=== PATIENT | male | born 1940 | race Caucasian/White ===

== ENCOUNTER 2016-10-27 00:31 | Observation (INO) | payer BC ==
[~2016-10-27] VITALS: Ht 175.3 cm; Wt 84.0 kg
[~2016-10-27 00:31] MED LIST: ASPEC81 PO; CLC100 PO; METO50TA16 PO; OXYC1TAB3 PO; PANT40TA PO; SIMV40TA2 PO
[2016-10-27] MEDS ORDERED: ONDANSETRON INJ 2 MG/ML 2 ML VIAL ONE (01:10)
[2016-10-27] MEDS ORDERED: ONDANSETRON INJ 2 MG/ML 2 ML VIAL IV STA (01:10)
[2016-10-27] MEDS ORDERED: COEN30CA8 PO (01:20)
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
[2016-10-27] MEDS ORDERED: SODIUM CHLORIDE 0.9% 1000ML 1,000 ML IV STA (01:32)
[2016-10-27 01:45] LABS: BASO % 0.2 %; BASO ABS # 0.02 K/uL (0-0.2); COMPLETE YES; EOS % 2.4 %; HEMATOCRIT 47.2 % (42-52); IG% 0.7 %; LYMPH % 23.2 %; LYMPH ABS # 2.65 K/uL (1.2-3.4); MEAN CELL VOLUME 93.1 fL (80-100); MEAN CORPUSCULAR HEMOGLOBIN 32.9 pg (25-34); MEAN CORPUSCULAR HGB CONC 35.4 g/dl (32-36); MEAN PLATELET VOLUME 9.5 fL (7.4-10.4); MONO % 3.1 %; NEUT % 70.4 %; PLATELET COUNT 273 K/uL (130-400); RED BLOOD COUNT 5.07 M/uL (4.7-6.1); WHITE BLOOD COUNT 11.44 K/uL (4.8-10.8)
[2016-10-27] MEDS ORDERED: LEVAQUIN 750MG / 150ML D5W IV STA (01:53)
[2016-10-27 01:57] LABS: PROTHROMBIN TIME (PATIENT) 11.1 SECONDS (9.0-12.0)
[2016-10-27 02:05] LABS: ALT/SGPT 22 U/L (12-78); AST/SGOT 11 U/L (15-37); BLOOD UREA NITROGEN 17 mg/dl (7-18); BUN/CREATININE RATIO 15.4 (10-20); CALCIUM 8.9 mg/dl (8.5-10.1); CARBON DIOXIDE 23 mmol/L (21-32); CHLORIDE 104 mmol/L (98-107); GLUCOSE 141 mg/dl (70-99); MAGNESIUM 1.9 mg/dl (1.8-2.4); POTASSIUM 3.8 mmol/L (3.5-5.1); SODIUM 138 mmol/L (136-145)
[2016-10-27 02:10] LABS: ALKALINE PHOSPHATASE 81 U/L (45-117); CKMB/CK RATIO 2.7 (0-3.0)
[2016-10-27] MEDS ORDERED: ZOLPIDEM TARTRATE 5 MG TAB PO PRN (03:00)
[2016-10-27] MEDS ORDERED: ACETAMINOPHEN 325 MG TAB PO PRN (03:00)
[2016-10-27 03:53] VITALS: BP 111/76; PULSE 77; TEMP 36.4; O2SAT 97; Ht 175.3 cm; Wt 84.0 kg
[2016-10-27] MEDS ORDERED: NSS + 20MEQ KCL 1000ML 1,000 ML IV SCH (04:00)
[2016-10-27] MEDS ORDERED: IV FLUIDS COMPLETED PRN (04:00)
--- NOTE | 2016-10-27 05:04 | History and Physical ---
History & Physical Date & Time of Service: Oct 27, 2016 at 04:52 Chief Complaint: Dehydration, Unresponsive Episode Primary Care Physician: Dilip Kramer M.D. History of Present Illness Source: patient, spouse The patient is a 75-year-old male who is brought to the emergency department via EMS along with his , with complaint of a resolved unresponsive episode approximately 5 minutes duration that occurred earlier in the day prior to arrival. The reports that his eyes were open, and she was waving at him and yelling at him and was not able to get him to respond, at which time she called for emergency services. The patient has had a cough with nausea, vomiting and diarrhea over the past few weeks, which is worsened in particular over the past few days. The unresponsive episode noted above, occurred after he returned from a vomiting episode while in the bathroom. reports that his speech was normal, but that his lower lip was flipped outward, and he did have loss of urine control and wetted himself during the incident. He has never had a previous occurrence of this type of activity. Past Medical/Surgical History Medical Problems: (1) Bronchitis Status: Resolved (2) Heart disease Status: Chronic (3) Ulcer Status: Resolved Surgical Problems: (1) Hx of cardiac catheterization Status: Resolved Family History Diabetes mellitus Social History Smoking Status: Current Some Day Smoker Smokeless Tobacco Use: No Alcohol Use: none Drug Use: none Marital Status: Housing status: lives with family Occupational Status: employed Immunizations History of Influenza Vaccine: Yes Influenza Vaccine Date: Jul 18, 2011 History of Tetanus Vaccine?: Yes Tetanus Immunization Date: Feb 03, 2011 History of Pneumococcal: Yes Pneumococcal Date: Aug 18, 2010 History of Hepatitis B Vaccine: No Multi-Drug Resistant Organisms History of MDRO: No Allergies Coded Allergies: No Known Allergies (Verified , 10/27/16) Home Medications Scheduled Aspirin Enteric Coated (Ecotrin Or Generic *), 81 MG PO DAILY Coenzyme Q10 (Ubidecarenone) (Coq-10), 1 CAP PO DAILY Metoprolol Tartrate (Lopressor) (Lopressor), 50 MG PO BID Pantoprazole (Protonix), 40 MG PO DAILY Simvastatin (Zocor), 40 MG PO QPM Review of Systems The patient denies chest pain, palpitations, shortness of breath, cough, lower extremity swelling, vision change, hearing change, sore throat, fevers, chills, sweats, blood in urine or stool, dysuria, urinary frequency or urgency, rash, abnormal bruising or bleeding, imbalance, focal weakness, numbness or tingling in arms or legs, arthralgias or myalgias, back or neck pain, night sweats. The review of systems is otherwise negative other than for that already noted above, and at least 10 systems have been reviewed. Physical Exam Vital Signs Date Time Temp Pulse Resp B/P Pulse Ox O2 Delivery O2 Flow Rate FiO2 10/27/16 03:53 36.4 77 18 111/76 97 Nasal Cannula 3.0 10/27/16 03:21 77 20 113/71 96 10/27/16 01:53 81 18 117/74 93 Nasal Cannula 3.0 10/27/16 01:21 75 10/27/16 01:00 92 Nasal Cannula 2.0 10/27/16 00:42 99 Nasal Cannula 2.0 10/27/16 00:41 77 10/27/16 00:39 36.4 74 22 109/64 91 Room Air The patient is awake, well-developed and adequately nourished, alert and oriented 3, face appears flushed and he looks dehydrated, lying in bed and in no acute distress. HEENT--PERRL, EOMI, mucous membranes and oropharynx dry. Neck--supple, no JVD or bruits, thyroid normal, trachea midline, no adenopathy. Heart--normal S1 and S2, no extra beats, no murmurs, rubs or gallops. Lungs--clear bilaterally with good air movement, no respiratory distress, no accessory muscle use. Abdomen--normal bowel sounds and soft, nontender and nondistended, no hernias or masses, no organomegaly. Extremities--no cyanosis, clubbing or edema. There are good distal pulses b/l. Dermatologic--normal skin turgor, normal color, warm and dry, no abnormal lymph nodes, no rash. Neurologic--cranial nerves II through XII grossly intact, motor and sensory examination normal. Rheumatologic--normal range of motion, nontender, muscles and joints. Psychiatric--normal affect. Diagnostics Laboratory Results Results Past 24 Hours Test 10/27/16 01:00 10/27/16 01:27 10/27/16 01:29 10/27/16 04:44 Range/Units Influenza Type A Antigen Neg for Influ A NEG Influenza Type B Antigen Neg for Influ B NEG Bedside Lactic Acid Venous 2.06 0.90-1.70 mmol/L White Blood Count 11.44 4.8-10.8 K/uL Red Blood Count 5.07 4.7-6.1 M/uL Hemoglobin 16.7 14.0-18.0 g/dL Hematocrit 47.2 42-52 % Mean Corpuscular Volume 93.1 80-100 fL Mean Corpuscular Hemoglobin 32.9 25-34 pg Mean Corpuscular Hemoglobin Concent 35.4 32-36 g/dl Platelet Count 273 130-400 K/uL Mean Platelet Volume 9.5 7.4-10.4 fL Neutrophils (%) (Auto) 70.4 % Lymphocytes (%) (Auto) 23.2 % Monocytes (%) (Auto) 3.1 % Eosinophils (%) (Auto) 2.4 % Basophils (%) (Auto) 0.2 % Neutrophils # (Auto) 8.06 1.4-6.5 K/uL Lymphocytes # (Auto) 2.65 1.2-3.4 K/uL Monocytes # (Auto) 0.36 0.11-0.59 K/uL Eosinophils # (Auto) 0.27 0-0.5 K/uL Basophils # (Auto) 0.02 0-0.2 K/uL RDW Standard Deviation 45.5 36.4-46.3 fL RDW Coefficient of Variation 13.4 11.5-14.5 % Immature Granulocyte % (Auto) 0.7 % Immature Granulocyte # (Auto) 0.08 0.00-0.02 K/uL Prothrombin Time 11.1 9.0-12.0 SECONDS Prothromb Time International Ratio 1.0 0.9-1.1 Sodium Level 138 136-145 mmol/L Potassium Level 3.8 3.5-5.1 mmol/L Chloride Level 104 98-107 mmol/L Carbon Dioxide Level 23 21-32 mmol/L Anion Gap 11.0 3-11 mmol/L Blood Urea Nitrogen 17 7-18 mg/dl Creatinine 1.10 0.60-1.40 mg/dl Est Creatinine Clear Calc Drug Dose 50.7 ml/min Estimated GFR () 75.2 Estimated GFR (Non- 64.9 BUN/Creatinine Ratio 15.4 10-20 Random Glucose 141 70-99 mg/dl Calcium Level 8.9 8.5-10.1 mg/dl Magnesium Level 1.9 1.8-2.4 mg/dl Total Bilirubin 0.3 0.2-1 mg/dl Direct Bilirubin < 0.1 0-0.2 mg/dl Aspartate Amino Transf (AST/SGOT) 11 15-37 U/L Alanine Aminotransferase (ALT/SGPT) 22 12-78 U/L Alkaline Phosphatase 81 45-117 U/L Total Creatine Kinase 73 39-308 U/L Creatine Kinase MB 2.0 0.5-3.6 ng/ml Creatine Kinase MB Ratio 2.7 0-3.0 Troponin I < 0.015 0-0.045 ng/ml Total Protein 6.9 6.4-8.2 gm/dl Albumin 3.8 3.4-5.0 gm/dl Microbiology Results 10/27/16 Blood Culture, Received Pending 10/27/16 Blood Culture, Received Pending 10/27/16 C.difficile Toxin B Gene (PCR) - Final, Complete No C. difficile toxin B gene detected 10/27/16 Shiga Toxin Test, Received Pending 10/27/16 Stool Culture, Received Pending EKG EKG shows normal sinus rhythm at 73, with T-wave inversions in leads III and aVF. Impression Assessment and Plan Unresponsive episode, with signs and symptoms of dehydration, and T-wave inversions in leads III and aVF on EKG. The patient will be admitted to the telemetry unit, for serial cardiac enzymes, cardiac rhythm monitoring, and a 2- D echocardiogram with Dopplers. We'll also order an EEG, neurovascular checks, and MRI brain combo. He'll be placed on normal saline with 20 mEq of potassium chloride at 100 mils per hour. We'll continue metoprolol tartrate at 50 mg by mouth twice a day, and enteric-coated aspirin 81 mg by mouth daily. GERD--continue pantoprazole 40 mg by mouth daily. Hyperlipidemia--continue simvastatin 40 mg by mouth every afternoon. Level of Care Telemetry Advanced Directives Existing Advance Directive: Yes Existing Living Will: Yes Existing Power of Hairspring Vibrator: Yes Resuscitation Status FULL RESUSCITATION VTE Prophylaxis VTE Risk Assessment Done? Y/N: Yes Risk Level: Moderate Given or contraindicated: SCD's Social Service Consult None Apply
--- NOTE | 2016-10-27 06:38 | DIAGNOSTIC IMAGING REPORT ---
CT HEAD WITHOUT CONTRAST (CT) CLINICAL HISTORY: Syncope. Weakness. COMPARISON STUDY: No previous studies for comparison. TECHNIQUE: Axial CT of the brain is performed from the vertex to the skull base. IV contrast was not administered for this examination. CT DOSE: 537.48 mGy.cm FINDINGS: No intra or extra-axial mass lesions are visualized. There is no CT evidence of acute cortical infarction. There is no evidence of midline shift. There is no acute hemorrhage. No calvarial fractures are visualized. There are patchy white matter hypodensities likely on a small vessel basis. There is no evidence of pathologic ventricular dilatation. There is no evidence of acute sinusitis IMPRESSION: No acute intracranial findings Electronically signed by: Viktor Garcia M.D. 10/27/2016 6:36 AM Dictated Date/Time: 10/27/2016 6:35 AM
[2016-10-27 06:43] LABS: CKMB/CK RATIO 2.6 (0-3.0)
--- NOTE | 2016-10-27 07:15 | DIAGNOSTIC IMAGING REPORT ---
SINGLE VIEW CHEST CLINICAL HISTORY: Fever. FINDINGS: An AP, portable, upright chest radiograph is compared to study dated 08/11/2011. The examination is degraded by portable technique and patient rotation. The patient is status post midline sternotomy. The heart is enlarged and there is atherosclerotic calcification of the thoracic aorta. The pulmonary vasculature is noncongested. Emphysematous change and chronic interstitial thickening is similar to previous. There is elevation of the left hemidiaphragm with left basilar airspace opacities. No pleural effusion or pneumothorax is seen. The skeletal structures are osteopenic. The bony thorax is grossly intact. IMPRESSION: 1. Cardiomegaly and emphysema. There is no radiographic evidence of congestive failure. 2. There are left basilar airspace opacities. This could represent atelectasis, developing pneumonia, and/or aspiration pneumonitis. Clinical correlation will be required. Electronically signed by: Michael Cornell M.D. 10/27/2016 7:13 AM Dictated Date/Time: 10/27/2016 7:11 AM
[2016-10-27 08:00] VITALS: O2SAT 94
[2016-10-27 08:18] VITALS: BP 110/69; PULSE 75; TEMP 36.3; O2SAT 97
[2016-10-27] MEDS ORDERED: METOPROLOL TARTRATE 50 MG TAB PO SCH (09:00)
[2016-10-27] MEDS ORDERED: PANTOprazole SOD 40 MG TAB PO SCH (09:00)
[2016-10-27] MEDS ORDERED: ASPIRIN 81 MG ECTAB PO SCH (09:00)
[2016-10-27] MEDS ORDERED: GADAVIST IV PRN (09:30)
--- NOTE | 2016-10-27 09:31 | EEG Procedure Note ---
EEG Procedure Note Date of Service Oct 27, 2016. Start / End Times Start Time: 5:24 AM End Time: 5:44 AM Referring Physician Santosh Gallardo History This is a 75-year-old male with an unresponsive episode. EEG for further evaluation of possible seizure etiology. Home Medication List Scheduled Aspirin Enteric Coated (Ecotrin Or Generic *), 81 MG PO DAILY Coenzyme Q10 (Ubidecarenone) (Coq-10), 1 CAP PO DAILY Metoprolol Tartrate (Lopressor) (Lopressor), 50 MG PO BID Pantoprazole (Protonix), 40 MG PO DAILY Simvastatin (Zocor), 40 MG PO QPM Inpatient Medication List Current Inpatient Medications Medications (Trade) Dose Ordered Sig/Nayan Route Start Time Stop Time Status Last Admin Dose Admin Potassium Chloride/Sodium Chloride (Nss + 20meq KCl 1000ml) 1,000 ml @ 125 mls/hr Q8H IV 10/27/16 04:00 11/26/16 03:59 10/27/16 04:19 125 MLS/HR Acetaminophen (Tylenol Tab) 650 mg Q4H PRN PO 10/27/16 03:00 11/26/16 02:59 Zolpidem Tartrate (Ambien Tab) 5 mg HSZ PRN PO 10/27/16 03:00 11/26/16 02:59 Aspirin (Ecotrin Tab) 81 mg DAILY PO 10/27/16 09:00 11/26/16 08:59 Metoprolol Tartrate (Lopressor Tab) 50 mg BID PO 10/27/16 09:00 11/26/16 08:59 Pantoprazole Sodium (Protonix Tab) 40 mg DAILY PO 10/27/16 09:00 11/26/16 08:59 Simvastatin (Zocor Tab) 40 mg QPM PO 10/27/16 21:00 11/26/16 20:59 Miscellaneous (Iv Fluids Completed) 1 ea PRN PRN N/A 10/27/16 04:00 10/27/17 03:59 Gadobutrol (Gadavist) 8 mmol UD PRN IV 10/27/16 09:30 10/31/16 09:29 UNV Description This is a 21 electrode EEG with a single channel dedicated to limited EKG. The electrodes were placed in accordance with the International 10-20 system. At the start of the recording the patient was in an awake state. Background was well organized and composed of symmetric mixed alpha and beta frequencies. There was a symmetric well-formed moderate amplitude 8-9 Hz posterior dominant rhythm that was reactive to eye opening and closure. Hyperventilation was not done. Intermittent photic stimulation at various frequencies produced no abnormalities. There was no state changes or sleep transients. Interpretation This is a normal awake only routine EEG. There was no electrographic seizures or epileptiform discharges. Clinical Correlation A normal EEG does not rule out epilepsy if there is a strong clinical suspicion.
--- NOTE | 2016-10-27 09:35 | DIAGNOSTIC IMAGING REPORT ---
MRI OF THE BRAIN WITHOUT AND WITH IV CONTRAST SEIZURE PROTOCOL CLINICAL HISTORY: Unresponsive episode. COMPARISON STUDY: Head CT October 27, 2016. TECHNIQUE: Utilizing a 1.5 Nayely magnet and dedicated coil, multiplanar, multiecho imaging of the brain was performed pre and postcontrast administration. IV administration of 8 mL of Gadavist contrast was uneventful. Thin cut coronal T2 imaging was performed according to seizure protocol. FINDINGS: This exam is mildly compromised by artifact although is diagnostic. There are no areas of restricted diffusion. No acute intracranial hemorrhage, midline shift or mass effect is present. Moderate atrophy is noted. Extensive white matter T2 hyperintense foci suggest small vessel disease. No intracranial mass or pathologic enhancement is present. Flow-voids for the major intracranial vessels are present. The orbits and sinuses are unremarkable with exception of minimal polypoid mucosal thickening of the sinuses. There is no fluid within the mastoid air cells. IMPRESSION: 1. No acute intracranial findings. 2. No intracranial masses or pathologic enhancement. 3. Moderate atrophy and small vessel disease. Electronically signed by: Peter De La Rosa M.D. 10/27/2016 9:33 AM Dictated Date/Time: 10/27/2016 9:27 AM
[2016-10-27] MEDS ORDERED: SODIUM CHLORIDE 0.65% NA SOLN 45 ML (OCEAN) PRN (09:45)
[2016-10-27 12:00] VITALS: O2SAT 94
[2016-10-27 12:01] VITALS: BP 104/67; PULSE 64; TEMP 36.6; O2SAT 95
[2016-10-27 13:05] LABS: CKMB/CK RATIO 2.9 (0-3.0)
--- NOTE | 2016-10-27 14:25 | Discharge Instructions ---
Discharge Instructions Admission Reason for Admission: Dehydration, Unresponsive Episode Discharge Discharge Diagnosis / Problem: dehydration Discharge Goals Goal(s): Diagnostic testing, Therapeutic intervention Activity Recommendations Activity Limitations: resume your previous activity . Instructions / Follow-Up Instructions / Follow-Up please discontinue the antibiotic that was given to you by Dr Millard office Current Hospital Diet Patient's current hospital diet: AHA Diet (Heart Healthy) Discharge Diet Recommended Diet: Regular Diet Pending Studies Studies pending at discharge: yes List of pending studies: final culture results are pending Medical Emergencies . Who to Call and When: Medical Emergencies: If at any time you feel your situation is an emergency, please call 911 immediately. . Non-Emergent Contact Non-Emergency issues call your: Primary Care Provider . . "Provider Documentation" section prepared by Vinod Chen. VTE Core Measure Inpt VTE Proph given/why not?: SCD's
[2016-10-27 14:35] VITALS: BP 104/67; PULSE 64; TEMP 36.6; O2SAT 95
--- NOTE | 2016-10-27 15:53 | Discharge Summary ---
Discharge Summary Admission Date: Oct 27, 2016 at 02:58 Discharge Date: Oct 27, 2016 Discharge Disposition: Home Principal Diagnosis: syncope, dehydration resolved Immunizations: Have You Had Influenza Vaccine: Yes Influenza Vaccine Date: Jul 18, 2011 History of Tetanus Vaccine?: Yes Tetanus Immunization Date: Feb 03, 2011 History of Pneumococcal: Yes Pneumococcal Date: Aug 18, 2010 History of Hepatitis B Vaccine: No Procedures: CT head, MRI brain, EEG, ECG, monitoring and Cardiac enzymes no acute abnormalities Medication Reconciliation Continued Medications: Aspirin Enteric Coated (Ecotrin Or Generic *) 81 Mg Ectab 81 MG PO DAILY, 0 Refills Coenzyme Q10 (Ubidecarenone) (Coq-10) 30 Mg Cap 1 CAP PO DAILY Metoprolol Tartrate (Lopressor) (Lopressor) 50 Mg Tab 50 MG PO BID, 0 Refills Pantoprazole (Protonix) 40 Mg Tab 40 MG PO DAILY, 0 Refills Simvastatin (Zocor) 40 Mg Tab 40 MG PO QPM, 0 Refills Discharge Exam Review of Systems: Constitutional: No chills, No fever Respiratory: No cough, No sputum Cardiovascular: No chest pain, No orthopnea Abdomen: No nausea, No pain, No vomiting Genitourinary - Male: No dysuria, No hematuria Physical Exam: General Appearance: WD/WN, no apparent distress Eyes: PERRL, EOMI Neck: supple, no JVD Respiratory/Chest: chest non-tender, lungs clear, normal breath sounds Cardiovascular: regular rate, rhythm, no murmur Neurologic/Psychiatric: alert, oriented x 3 Hospital Course 75 M with an unresponsive episode, after vomiting at home with clinical signs and symptoms of dehydration per the admitting physician. Has had no further vomiting, has had no arrythmia, did have imaging and EEG with no changes, ate lunch and ambulated in unit, brennon secondary to vasovagal syncope augmenting dehydration and orthostatic hypotension while on metoprolol not allowing tachycardic response. since resolution of symptoms, able to eat and walk without issue, will have home on same meds with close outpt follow up, will stop outpt augmentin as maybe implicated in diarrhea leading to dehydration. negative C diff here, enteric testing pending at time of discharge GERD--continue pantoprazole 40 mg by mouth daily. Hyperlipidemia--continue simvastatin 40 mg by mouth every afternoon. Total Time Spent: Greater than 30 minutes This includes examination of the patient, discharge planning, medication reconciliation, and communication with other providers. Discharge Instructions Please refer to the electronic Patient Visit Report (Discharge Instructions) for additional information.
--- NOTE | 2016-10-27 17:16 | ECHOCARDIOGRAM REPORT ---
*NOTICE TO RECEIVING [employer] This information is strictly Confidential and protected under [place] law. [place] law prohibits you from making any further disclosure of this information unless further disclosure is expressly permitted by the written consent of the person to whom it pertains or is authorized by law. A general authorization for the release of medical or other information is not sufficient for this purpose. Hospital accepts no responsibility if the information is made available to any other person, INCLUDING THE PATIENT. Interpretation Summary * Name: OSCAR KINNEY Study Date: 10/27/2016 07:47 AM BP: 110/69 mmHg * Patient Location: .2T\S\E215\S\1 HR: 72 * : 1940 (M/d/yyy) Gender: Male Height: 69 in * Age: 75 yrs Ethnicity: CA Weight: 138 lb * Ordering Physician: Santosh Gallardo * Referring Physician: Self, Referred * Performed By: Celestina Perez RCS * * Reason For Study: ALT OF CONSCIOUSNESS / UNRESPONSIVE / DEHYDRATED * BSA: 1.8 m2 * -- Conclusions -- * Left ventricular systolic function is normal. * No regional wall motion abnormalities noted. * Ejection Fraction = 55-60%. * There is mild concentric left ventricular hypertrophy. * Grade I diastolic dysfunction, (abnormal relaxation pattern). * Aortic valve sclerosis mild, without significant aortic valvular stenosis. * There is mild mitral regurgitation. * There is mild tricuspid regurgitation. Procedure Details * A complete two-dimensional transthoracic echocardiogram was performed (2D, M-mode, Doppler and color flow Doppler). Left Ventricle * The left ventricle is normal in size. * There is mild concentric left ventricular hypertrophy. * Left ventricular systolic function is normal. * Ejection Fraction = 55-60%. * No regional wall motion abnormalities noted. Right Ventricle * The right ventricle is normal size. * The right ventricular systolic function is normal as assessed by tricuspid annular plane systolic excursion (TAPSE) (normal >1.5 cm). Atria * The left atrium is mildly dilated. * The right atrium is borderline dilated. * There is no evidence of atrial septal defect, but resolution does not allow assessment for a patent foramen ovale. * Lipomatous hypertrophy of the interatrial septum is noted. Mitral Valve * The mitral valve is normal in structure and function. * There is no mitral valve stenosis. * There is mild mitral regurgitation. Tricuspid Valve * The tricuspid valve is normal in structure and function. * There is mild tricuspid regurgitation. Aortic Valve * The aortic valve is trileaflet. * The aortic valve opens well. * Aortic valve sclerosis mild, without significant aortic valvular stenosis. * There is no significant aortic regurgitation. Pulmonic Valve * The pulmonic valve is not well visualized. * Trace pulmonic valvular regurgitation. Left Ventricular Diastolic Function * Grade I diastolic dysfunction, (abnormal relaxation pattern). MMode 2D Measurements and Calculations IVSd 1.5 cm IVSs 2.1 cm LVIDd 5.2 cm LVIDs 3.9 cm LVPWd 1.0 cm LVPWs 1.1 cm IVS/LVPW 1.4 FS 24.5 % EDV(Teich) 130.1 ml ESV(Teich) 67.3 ml EF(Teich) 48.2 % EDV(cubed) 141.4 ml ESV(cubed) 60.9 ml EF(cubed) 56.9 % % IVS thick 40.3 % % LVPW thick 9.8 % LV mass(C)d 265.9 grams LV mass(C)dI 150.7 grams/m\S\2 LV mass(C)s 252.8 grams LV mass(C)sI 143.3 grams/m\S\2 SV(Teich) 62.7 ml SI(Teich) 35.6 ml/m\S\2 SV(cubed) 80.4 ml SI(cubed) 45.6 ml/m\S\2 Ao root diam 4.3 cm Ao root area 14.8 cm\S\2 ACS 2.4 cm LA dimension 4.6 cm LA/Ao 1.1 LVOT diam 2.0 cm LVOT area 3.1 cm\S\2 LVAd ap4 37.1 cm\S\2 LVLd ap4 9.1 cm EDV(MOD-sp4) 124.2 ml EDV(sp4-el) 128.7 ml LVAs ap4 25.2 cm\S\2 LVLs ap4 7.6 cm ESV(MOD-sp4) 69.4 ml ESV(sp4-el) 71.3 ml EF(MOD-sp4) 44.1 % EF(sp4-el) 44.6 % LVAd ap2 34.7 cm\S\2 LVLd ap2 8.5 cm EDV(MOD-sp2) 112.1 ml EDV(sp2-el) 120.6 ml LVAs ap2 24.5 cm\S\2 LVLs ap2 7.4 cm ESV(MOD-sp2) 65.2 ml ESV(sp2-el) 69.1 ml EF(MOD-sp2) 41.8 % EF(sp2-el) 42.7 % LVLd %diff -6.69 % EDV(MOD-bp) 118.9 ml LVLs %diff -2.13 % ESV(MOD-bp) 67.3 ml EF(MOD-bp) 43.4 % SV(MOD-sp4) 54.8 ml SI(MOD-sp4) 31.0 ml/m\S\2 SV(MOD-sp2) 46.9 ml SI(MOD-sp2) 26.6 ml/m\S\2 SV(MOD-bp) 51.6 ml SI(MOD-bp) 29.2 ml/m\S\2 SV(sp4-el) 57.5 ml SI(sp4-el) 32.6 ml/m\S\2 SV(sp2-el) 51.5 ml SI(sp2-el) 29.2 ml/m\S\2 Doppler Measurements and Calculations MV E max carrillo 55.5 cm/sec MV A max carrillo 69.0 cm/sec MV E/A 0.80 MV P1/2t max carrillo 67.3 cm/sec MV P1/2t 110.0 msec MVA(P1/2t) 2.0 cm\S\2 MV dec slope 179.2 cm/sec\S\2 MV dec time 0.34 sec Ao V2 max 117.3 cm/sec Ao max PG 5.5 mmHg Ao max PG (full) 0.60 mmHg JAMES(V,A) 3.0 cm\S\2 JAMES(V,D) 3.0 cm\S\2 LV V1 max PG 4.9 mmHg LV V1 max 110.7 cm/sec PA V2 max 83.6 cm/sec PA max PG 2.8 mmHg PI max carrillo 190.7 cm/sec PI max PG 14.5 mmHg PI dec slope 210.5 cm/sec\S\2 PI P1/2t 265.3 msec TR max carrillo 221.3 cm/sec
[2016-10-27] MEDS ORDERED: SIMVASTATIN 40 MG TAB PO SCH (21:00)
== END 2016-10-27 15:27 | disposition home or self-care (01) ==
LOC: ENRESERVDT → ENRESERVTM → EDBD 00:31 → C.EDB 00:33 → C.2T 02:58
PROVIDERS: ADMIT Hospitalist; ATTEND Internal Medicine
DX: R55 Syncope and collapse (principal); E86.0 Dehydration; R19.7 Diarrhea, unspecified; K21.9 Gastro-esophageal reflux disease without esophagitis; E78.5 Hyperlipidemia, unspecified; F17.200 Nicotine dependence, unspecified, uncomplicated; Z79.899 Other long term (current) drug therapy; Z79.82 Long term (current) use of aspirin

== ENCOUNTER → 2016-11-22 | Outpatient (CLI) | payer BC ==
[~2016-11-22] MED LIST changes: -CLC100 PO; +COEN30CA8 PO; -OXYC1TAB3 PO
[2016-11-22 12:54] LABS: ALB/GLOB RATIO 1.1 (0.9-2); ALKALINE PHOSPHATASE 83 U/L (45-117); ALT/SGPT 24 U/L (12-78); AST/SGOT 14 U/L (15-37); BLOOD UREA NITROGEN 10 mg/dl (7-18); BUN/CREATININE RATIO 11.3 (10-20); CALCIUM 9.4 mg/dl (8.5-10.1); CARBON DIOXIDE 25 mmol/L (21-32); CHLORIDE 103 mmol/L (98-107); CHOLESTEROL 257 mg/dl (0-200); CHOLESTEROL/HDL RATIO 3.3; CREATININE 0.88 mg/dl (0.60-1.40); GLUCOSE 97 mg/dl (70-99); HDL CHOLESTEROL 77 mg/dl; LDL CHOLESTEROL CALCULATED 133 mg/dl; POTASSIUM 3.8 mmol/L (3.5-5.1); SODIUM 139 mmol/L (136-145); TRIGLYCERIDES 233 mg/dl (0-150); VERY LOW DENSITY LIPOPROT CALC 47 mg/dl
== END | disposition home or self-care (01) ==
LOC: C.LABBFT 08:12
PROVIDERS: ATTEND Internal Medicine
DX: E78.5 Hyperlipidemia, unspecified (principal)

== ENCOUNTER → 2017-04-08 | Outpatient (CLI) | payer BC ==
[~2017-04-08] MED LIST changes: +ASPI81TA28 PO; +ATOR-22 PO
[2017-04-08 13:37] LABS: ALT/SGPT 29 U/L (12-78); AST/SGOT 13 U/L (15-37); BLOOD UREA NITROGEN 13 mg/dl (7-18); CALCIUM 9.3 mg/dl (8.5-10.1); CARBON DIOXIDE 23 mmol/L (21-32); CHLORIDE 104 mmol/L (98-107); CHOLESTEROL 226 mg/dl (0-200); CREATININE 0.84 mg/dl (0.60-1.40); GLUCOSE 90 mg/dl (70-99); POTASSIUM 4.4 mmol/L (3.5-5.1); SODIUM 136 mmol/L (136-145)
[2017-04-08 13:40] LABS: ALB/GLOB RATIO 1.2 (0.9-2); ALKALINE PHOSPHATASE 83 U/L (45-117); CHOLESTEROL/HDL RATIO 3.5; HDL CHOLESTEROL 65 mg/dl; LDL CHOLESTEROL CALCULATED 143 mg/dl; TRIGLYCERIDES 92 mg/dl (0-150); VERY LOW DENSITY LIPOPROT CALC 18 mg/dl
== END | disposition home or self-care (01) ==
LOC: C.LABBFT 08:08
PROVIDERS: ATTEND Internal Medicine
DX: E78.5 Hyperlipidemia, unspecified (principal); R73.01 Impaired fasting glucose

== ENCOUNTER → 2017-04-22 | Outpatient (CLI) | payer BC ==
[~2017-04-22] MED LIST changes: -ASPI81TA28 PO; -ATOR-22 PO
--- NOTE | 2017-04-22 11:36 | DIAGNOSTIC IMAGING REPORT ---
ADDENDUM ADDITIONAL TECHNIQUE: Additionally, ankle brachial indices were calculated. ADDITIONAL FINDINGS: Right brachial pressure: 128 mmHg Right posterior tibial artery: 153 mmHg for an ankle-brachial index of 1.18 Right dorsalis pedis: 129 mmHg for an ankle-brachial index of 0.99 Left brachial pressure: 130 mmHg Left posterior tibial artery: 153 mmHg for an ankle-brachial index of 1.18 Left dorsalis pedis: 120 mmHg for an ankle-brachial index of 0.92 IMPRESSION: Essentially normal bilateral ankle-brachial brachial indices. Electronically signed by: Damian Segovia 04/22/2017 3:11 PM Dictated Date/Time: 04/22/2017 3:07 PM ORIGINAL REPORT ART DOP LOWER EXT BILAT CLINICAL HISTORY: 76 years-old Male presenting with Decreased dorsalis pedis pulse. TECHNIQUE: Real-time grayscale and color and spectral Doppler ultrasound imaging of the bilateral lower extremity arteries was performed. Measurements calculated based on NASCET criteria. COMPARISON: None. FINDINGS: Right: Common femoral artery: Atherosclerotic plaque. Mild spectral broadening of triphasic arterial waveform. Peak systolic velocity 80 cm/s. Profunda femoris: Atherosclerotic plaque. Mild spectral broadening of the triphasic arterial waveform. Peak systolic velocity 56 cm/s. Superficial femoral artery: Minimal atherosclerosis. Normal triphasic waveforms in the proximal, mid, and distal portions with peak systolic velocities ranging from 70 to 79 cm/s. Popliteal artery: Patent. Normal triphasic waveform. Peak systolic velocity 47 cm/s. Posterior tibial artery: Patent. Normal triphasic waveform. Peak systolic velocity 74 cm/s. Peroneal artery: Patent. Normal triphasic waveform. Peak systolic velocity 49 cm/s. Anterior tibial artery: Patent. Normal triphasic waveforms. Peak systolic velocity 66 cm/s. Dorsalis pedis: Patent. Normal triphasic waveforms. Peak systolic velocity 57-65 cm/s. Left: Common femoral artery: Patent. Normal triphasic waveform. Peak systolic velocity 68 cm/s. Profunda femoris: Patent. Normal triphasic arterial waveform. Peak systolic velocity 46 cm/s. Superficial femoral artery: Patent. Normal triphasic waveforms in the proximal, mid, and distal portions with peak systolic velocities ranging from 60 to 110 cm/s. Popliteal artery: Patent. Normal triphasic waveform. Peak systolic velocity 41-52 cm/s. Posterior tibial artery: Patent. Normal triphasic waveform. Peak systolic velocity 46-59 cm/s. Peroneal artery: Patent. Normal triphasic waveform. Peak systolic velocity 46-48 cm/s. Anterior tibial artery: Patent. Normal triphasic waveforms. Peak systolic velocity 34-69 cm/s. Dorsalis pedis: Patent. Normal triphasic waveforms. Peak systolic velocity 29 cm/s. 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 No significant stenosis. Dorsalis pedis arteries patent bilaterally. Electronically signed by: Damian Segovia 04/22/2017 11:34 AM Dictated Date/Time: 04/22/2017 11:15 AM
== END | disposition home or self-care (01) ==
LOC: C.ULTR 09:43
PROVIDERS: ATTEND Internal Medicine
DX: R09.89 Other specified symptoms and signs involving the circulatory and respiratory systems (principal)

== ENCOUNTER → 2017-09-06 | Outpatient (CLI) | payer BC ==
--- NOTE | 2017-09-06 09:37 | DIAGNOSTIC IMAGING REPORT ---
ABDOMEN 2 VIEWS CLINICAL HISTORY: Lower abdominal pain. FINDINGS: Supine and erect abdominal radiographs are correlated with abdominal CT dated 10/05/2011. There is a nonobstructed abdominal bowel gas pattern. Mild colonic fecal retention is observed. No evidence of intraperitoneal free air is seen. There are no abnormal abdominal calcifications. There is atherosclerotic calcification of the abdominal aorta. Phleboliths are seen in the pelvis. The heart is enlarged and midline sternotomy wires are noted. The partially visualized lower lobe lung parenchyma is grossly clear. The skeletal structures appear osteopenic. Mild lumbosacral spondylosis and scoliosis are identified. IMPRESSION: Nonobstructed abdominal bowel gas pattern. Electronically signed by: Michael Cornell M.D. 09/06/2017 9:36 AM Dictated Date/Time: 09/06/2017 9:34 AM
--- NOTE | 2017-09-06 09:37 | DIAGNOSTIC IMAGING REPORT ---
CHEST 2 VIEWS ROUTINE CLINICAL HISTORY: ABD PAIN, COUGH COMPARISON STUDY: 10/27/2016 FINDINGS: There are postsurgical changes of a midline sternotomy. The heart is the upper limits of normal in size. There is no failure. There is no lobar consolidation. There is stable interstitial thickening. There is suspected underlying emphysema. There is a linear left basilar opacity, consistent with subsegmental atelectasis.[ IMPRESSION: Radiographic evidence of emphysema with chronic interstitial thickening. Mild left basilar atelectasis. No evidence of lobar consolidation. Electronically signed by: Vikotr Garcia M.D. 09/06/2017 9:36 AM Dictated Date/Time: 09/06/2017 9:34 AM
[2017-09-06 09:39] LABS: BASO % 0.3 %; BASO ABS # 0.02 K/uL (0-0.2); COMPLETE YES; EOS % 1.7 %; HEMATOCRIT 49.4 % (42-52); IG% 0.3 %; LYMPH % 20.3 %; LYMPH ABS # 1.57 K/uL (1.2-3.4); MEAN CELL VOLUME 96.5 fL (80-100); MEAN CORPUSCULAR HEMOGLOBIN 34.4 pg (25-34); MEAN CORPUSCULAR HGB CONC 35.6 g/dl (32-36); MEAN PLATELET VOLUME 9.8 fL (7.4-10.4); MONO % 10.2 %; NEUT % 67.2 %; PLATELET COUNT 296 K/uL (130-400); RED BLOOD COUNT 5.12 M/uL (4.7-6.1); WHITE BLOOD COUNT 7.72 K/uL (4.8-10.8)
[2017-09-06 09:55] LABS: ALT/SGPT 20 U/L (12-78); AMYLASE 35 U/L (25-115); BLOOD UREA NITROGEN 9 mg/dl (7-18); CALCIUM 9.7 mg/dl (8.5-10.1); CARBON DIOXIDE 28 mmol/L (21-32); CHLORIDE 100 mmol/L (98-107); CREATININE 1.03 mg/dl (0.60-1.40); GLUCOSE 96 mg/dl (70-99); SODIUM 135 mmol/L (136-145)
[2017-09-06 09:57] LABS: ALB/GLOB RATIO 0.9 (0.9-2); ALKALINE PHOSPHATASE 97 U/L (45-117); AST/SGOT 11 U/L (15-37)
== END | disposition home or self-care (01) ==
LOC: C.RAD 08:19
PROVIDERS: ATTEND Nurse Practitioner
DX: R10.84 Generalized abdominal pain (principal); R05 Cough

== ENCOUNTER → 2017-09-12 | Outpatient (CLI) | payer BC ==
--- NOTE | 2017-09-12 07:54 | DIAGNOSTIC IMAGING REPORT ---
ABDOMEN AND PELVIS CT WITH ORAL CONTRAST CT DOSE: 611.02 mGy.cm HISTORY: Acute right lower quadrant and right groin pain. History of prior appendectomy. TECHNIQUE: Multiaxial CT images of the abdomen and pelvis were performed following the use of oral contrast. A dose lowering technique was utilized adhering to the principles of ALARA. COMPARISON STUDY: CT abdomen and pelvis 10/05/2011, 09/25/2009. FINDINGS: Thin-walled cyst of the right lower lobe abutting the minor fissure measures up to 5.0 cm with adjacent perifissural lymph node which measures 6 mm. Groundglass opacities of the bilateral lung bases are noted. Mild centrilobular emphysematous changes are also noted. Areas of bronchial wall thickening involves the bilateral lung bases suggesting bronchitis. There is a 6 x 6 mm nodule of the left lower lobe seen on image 58 of series 3 demonstrating a central lucency compatible with cavitation. The central lucency is new, however the nodule is unchanged in size dating back to 09/25/2009. 4 mm noncalcified solid nodule of the left lower lobe is seen on image 20 of series 3. 4 mm solid nodule of the left lower lobe also seen on image 35 of series 3. Coronary arterial calcifications are noted. Prior median sternotomy. No pneumoperitoneum or pneumatosis. Evaluation of the solid abdominal organs is limited without use of IV contrast. There are multiple low attenuating lesions scattered throughout the liver, largest of which is within the left hepatic lobe measure 1.8 cm. Again, these suggest hepatic cyst. No intrahepatic biliary ductal dilation. Gallstones are noted layering within the gallbladder. No CT evidence of acute cholecystitis. Spleen and right adrenal gland are unremarkable. There is at least moderate diffuse pancreatic atrophy. 10 x 10 mm low attenuating lesion of the left adrenal gland is compatible with adenoma, unchanged. Mild nonspecific perinephric stranding is seen bilaterally. 11 x 14 mm exophytic lesion of the posterior aspect superior pole right kidney is again noted suggesting renal cyst. No renal calculi or hydronephrosis. Ureters and urinary bladder are unremarkable. Fusiform ectasia of the infrarenal abdominal aorta measures up to 2.4 x 2.2 cm with moderate to severe atherosclerotic plaquing. No bulky adenopathy. There is no bowel obstruction. Moderate stool volume noted within the rectum. Areas of mild to moderate wall thickening are noted within the mid sigmoid colon as seen on image 342 of series 3. No surrounding inflammatory stranding to suggest colitis. There is moderate colonic diverticulosis without evidence of acute diverticulitis. Appendix not seen and may be surgically absent. Soft tissues are unremarkable. The bones appear to be mildly demineralized. Degenerative changes are seen within the lumbar spine. IMPRESSION: 1. Mild to moderate wall thickening of the mid sigmoid colon is nonspecific. This could be correlated with colonoscopy. 2. Moderate sigmoid diverticulosis without CT evidence of acute diverticulitis. No bowel obstruction. 3. Cholelithiasis without CT evidence of acute cholecystitis. 4. Bibasilar bronchial wall thickening suggests bronchitis with areas of subsegmental atelectasis and/or pneumonitis. Noncalcified solid nodules of the left lower lobe are seen measuring up to 6 mm. The 6 mm nodule has slightly change in appearance as above, however is unchanged in size dating back to 09/25/2009 suggesting benign etiology. These findings could be further evaluated with CT of the chest. 5. Additional findings as above. Electronically signed by: Stephane Nuñez M.D. 09/12/2017 7:52 AM Dictated Date/Time: 09/12/2017 7:35 AM
== END | disposition home or self-care (01) ==
LOC: C.CTS 05:02
PROVIDERS: ATTEND Nurse Practitioner
DX: R05 Cough (principal); R10.84 Generalized abdominal pain; K57.30 Diverticulosis of large intestine without perforation or abscess without bleeding; K80.20 Calculus of gallbladder without cholecystitis without obstruction; R91.8 Other nonspecific abnormal finding of lung field

== ENCOUNTER → 2017-09-27 | Day surgery (SDC) | payer BC ==
[2017-09-22 12:56] VITALS: Ht 177.8 cm; Wt 81.8 kg
[~2017-09-27] VITALS: Ht 177.8 cm; Wt 81.8 kg
[~2017-09-27] MED LIST changes: -ASPEC81 PO; +ASPI81TA28 PO; +ATOR-22 PO; +LIDOCAINE HCL 2% 2 ML VIAL (20MG/ML) ONE; -PANT40TA PO; +PROPOFOL IV EMULSION 10 MG/ML 20 ML VIAL IV ONE; -SIMV40TA2 PO; +SODIUM CHLORIDE 0.9% 500ML 500 ML IV ONE
[2017-09-27 09:38] VITALS: TEMP 36.7
--- NOTE | 2017-09-27 09:59 | Endo History and Physical ---
History & Physical Date of Service: Sep 27, 2017. Chief Complaint: anemnia, colon wall thickening seen on CT Referring Physician: Dr. Kramer History of Present Illness 76 yo CM who presents for colonoscopy secondary to anemia and colon wall thickening on CT imaging. Past Surgical History Hx Cardiac Surgery: Yes (CABG 2010) Hx Internal Defibrillator: No Hx Pacemaker: No Hx Abdominal Surgery: Yes (APPENDECTOMY) Hx of Implantable Prosthesis: No Hx Post-Op Nausea and Vomiting: No Hx Cancer Surgery: No Hx Thoracic Surgery: No Hx Orthopedic: No Hx Urinary Tract Surgery: No Social History Smoking Status: Current Some Day Smoker Hx Substance Use: No Hx Alcohol Use: Yes (Beer- 3 beers weekly) Allergies Coded Allergies: No Known Allergies (Verified , 09/27/17) Current Medications Reported Home Medications Medications Dose Route/Sig Max Daily Dose Days Date Category Lipitor (Atorvastatin Calcium) 20 Mg Tab 20 Mg PO QPM 09/22/17 Reported Aspirin Ec (Aspirin) 81 Mg Tab 81 Mg PO QPM 09/22/17 Reported Coq-10 (Coenzyme Q10 (Ubidecarenone)) 30 Mg Cap 1 Cap PO QPM 10/27/16 Reported Lopressor (Metoprolol Tartrate) 50 Mg Tab 50 Mg PO BID 10/05/11 Reported Vital Signs Weight (Kilograms): 81.82 Height (Feet): 5 Height (Inches): 10 Date Time Temp Pulse Resp B/P (MAP) Pulse Ox O2 Delivery O2 Flow Rate FiO2 09/27/17 09:38 36.7 78 20 132/86 (101) 95 Room Air Physical Exam General Appearance: WD/WN, no apparent distress Respiratory/Chest: Auscultation: breath sounds normal Cardiovascular: Heart Auscultation: RRR Abdomen: Bowel Sounds: normal Inspection & Palpation: soft, non-distended, no tenderness, guarding & rebound Assessment and Plan Assessment: 76 yo CM who presents for colonoscopy secondary to anemia and colon wall thickening on CT imaging. Plan: Proceed with colonoscopy.
--- NOTE | 2017-09-27 11:53 | GI REPORT ---
Procedure Date: 09/27/2017 11:25 AM Procedure: Colonoscopy Indications: Abnormal CT of the GI tract Medicines: Monitored Anesthesia Care Complications: No immediate complications. Estimated Blood Loss: Estimated blood loss: none. Procedure: Pre-Anesthesia Assessment: - Prior to the procedure, a History and Physical was performed, and patient medications and allergies were reviewed. The patient's tolerance of previous anesthesia was also reviewed. The risks and benefits of the procedure and the sedation options and risks were discussed with the patient. All questions were answered, and informed consent was obtained. Prior Anticoagulants: The patient has taken aspirin, last dose was 4 days prior to procedure. ASA Grade Assessment: III - A patient with severe systemic disease. After reviewing the risks and benefits, the patient was deemed in satisfactory condition to undergo the procedure. After I obtained informed consent, the scope was passed under direct vision. Throughout the procedure, the patient's blood pressure, pulse, and oxygen saturations were monitored continuously. The scope was introduced through the anus and advanced to the terminal ileum. The colonoscopy was performed without difficulty. The patient tolerated the procedure well. The quality of the bowel preparation was good. The terminal ileum, ileocecal valve, appendiceal orifice, and rectum were photographed. Findings: The perianal and digital rectal examinations were normal. Many small and large-mouthed diverticula were found in the sigmoid colon. There was narrowing of the colon in association with the diverticular opening. A 4 mm polyp was found in the rectum. The polyp was sessile. The polyp was removed with a cold snare. Resection and retrieval were complete. Non-bleeding internal hemorrhoids were found during retroflexion. The hemorrhoids were small. Impression: - Severe diverticulosis in the sigmoid colon. There was narrowing of the colon in association with the diverticular opening. - One 4 mm polyp in the rectum, removed with a cold snare. Resected and retrieved. - Non-bleeding internal hemorrhoids. Recommendation: - Resume previous diet. - Continue present medications. - Repeat colonoscopy for surveillance based on pathology results. - Return to primary care physician as previously scheduled. Fareed Prajapati DO 09/27/2017 11:53:08 AM This report has been signed electronically. Note Initiated On: 09/27/2017 11:25 AM I attest to the content of the Intraoperative Record and orders documented therein, exceptions below
--- NOTE | 2017-09-27 12:04 | Anesthesiology Progress Note ---
Anesthesia Post Op Note Date & Time Sep 27, 2017 at 12:04 Vital Signs Pain Intensity: 0 Vital Signs Past 12 Hours Date Time Temp Pulse Resp B/P (MAP) Pulse Ox O2 Delivery O2 Flow Rate FiO2 09/27/17 11:54 72 20 97/59 (72) 94 Room Air 09/27/17 09:38 36.7 78 20 132/86 (101) 95 Room Air Notes Mental Status: alert / awake / arousable, participated in evaluation Pt Amnestic to Procedure: Yes Nausea / Vomiting: adequately controlled Pain: adequately controlled Airway Patency, RR, SpO2: stable & adequate BP & HR: stable & adequate Hydration State: stable & adequate Anesthetic Complications: no major complications apparent
--- NOTE | 2017-09-27 12:07 | Discharge Instructions ---
Endoscopy Patient Instructions Date / Procedure(s) Performed Sep 27, 2017. Colonoscopy Allergy Information Coded Allergies: No Known Allergies (Verified , 09/27/17) Discharge Date / Findings Sep 27, 2017. Rectal polyp Diverticulosis Internal hemorrhoids Medication Instructions Stopped Medication(s): All meds stopped 09-23-17. OK to resume all medications today as prescribed Reported Home Medications Medications Dose Route/Sig Max Daily Dose Days Date Category Lipitor (Atorvastatin Calcium) 20 Mg Tab 20 Mg PO QPM 09/22/17 Reported Aspirin Ec (Aspirin) 81 Mg Tab 81 Mg PO QPM 09/22/17 Reported Coq-10 (Coenzyme Q10 (Ubidecarenone)) 30 Mg Cap 1 Cap PO QPM 10/27/16 Reported Lopressor (Metoprolol Tartrate) 50 Mg Tab 50 Mg PO BID 10/05/11 Reported Provider Instructions Activity Restrictions - No exercising or heavy lifting for 24 hours. - Do not drink alcohol the day of the procedure. - Do not drive a car or operate machinery until the day after the procedure. - Do not make any important decisions or sign important papers in 24 hours after the procedure. Following Day: - Return to full activity which may include returning to work/school. Diet Start your diet with liquids and light foods (jello, soup, juice, toast). Then eat your usual diet if not nauseated. Treatment For Common After Affects For mild abdominal pain, bloating, or excessive gas: - Rest - Eat lightly - Lie on right side Follow-Up Information Follow-up with Dr. Kramer as scheduled Anesthesia Information What You Should Know You have had a procedure that required some medicine to reduce anxiety and discomfort. This treatment is called moderate sedation. After receiving the treatment, you may be sleepy, but you will be able to breathe on your own. The effects of the treatment may last for several hours. Follow these instructions along with Activity/Diet recommendations noted above: * Do NOT do anything where dizziness or clumsiness would be dangerous. * Rest quietly at home today, then you can be up and about tomorrow. * Have a responsible person stay with you the rest of today. * You may have had an I.V. today. If so, you may take the dressing off later today. Recommendations Call your doctor if: * Trouble breathing * Continuous vomiting for more than 24 hours * Temperature above 101 degrees * Severe abdominal pain or bloating * Pain not relieved by pain medicine ordered * There is increased drainage or redness from any incision * A large amount of rectal bleeding greater than 2-3 tablespoons. (If you had a polyp/s removed or have hemorrhoids, a small amount of blood - from the rectum is to be expected.) * You have any unanswered questions or concerns. IN THE EVENT OF A SERIOUS EMERGENCY, GO TO THE NEAREST EMERGENCY ROOM Your discharge instructions were prepared by provider Fareed Prajapati. Patient Instructions Signature Page Chinedu Salmeron Patient (or Guardian) Signature/Date: I have read and understand the instructions given to me by my caregivers. Caregiver/RN/Doctor Signature/Date: The above-named patient and/or guardian has received patient instructions on this date. + Original Patient Signature Page (only) stays with chart. Please make copy for patient.
[2017-09-27 12:13] VITALS: BP 134/98; PULSE 72; O2SAT 96
== END | disposition home or self-care (01) ==
LOC: C.GI 09:13
PROVIDERS: ATTEND Internal Medicine
DX: D64.9 Anemia, unspecified (principal); R93.3 Abnormal findings on diagnostic imaging of other parts of digestive tract; K57.30 Diverticulosis of large intestine without perforation or abscess without bleeding; K62.1 Rectal polyp; K64.8 Other hemorrhoids; I25.10 Atherosclerotic heart disease of native coronary artery without angina pectoris; Z95.1 Presence of aortocoronary bypass graft; F17.200 Nicotine dependence, unspecified, uncomplicated; I25.2 Old myocardial infarction; Z90.89 Acquired absence of other organs; Z79.82 Long term (current) use of aspirin; Z79.899 Other long term (current) drug therapy

== ENCOUNTER → 2017-10-25 | Outpatient (CLI) | payer BC ==
[~2017-10-25] MED LIST changes: -LIDOCAINE HCL 2% 2 ML VIAL (20MG/ML) ONE; -PROPOFOL IV EMULSION 10 MG/ML 20 ML VIAL IV ONE; -SODIUM CHLORIDE 0.9% 500ML 500 ML IV ONE
[2017-10-25 12:33] LABS: BASO % 0.5 %; BASO ABS # 0.03 K/uL (0-0.2); EOS % 2.3 %; EOS ABS # 0.14 K/uL (0-0.5); HEMATOCRIT 50.5 % (42-52); HEMOGLOBIN 17.6 g/dL (14.0-18.0); IG# 0.01 K/uL (0.00-0.02); LYMPH % 29.2 %; LYMPH ABS # 1.81 K/uL (1.2-3.4); MEAN CELL VOLUME 96.4 fL (80-100); MEAN CORPUSCULAR HEMOGLOBIN 33.6 pg (25-34); MEAN CORPUSCULAR HGB CONC 34.9 g/dl (32-36); MEAN PLATELET VOLUME 10.1 fL (7.4-10.4); MONO % 9.2 %; MONO ABS # 0.57 K/uL (0.11-0.59); NEUT % 58.6 %; NEUT ABS # 3.64 K/uL (1.4-6.5); PLATELET COUNT 295 K/uL (130-400); RED CELL DISTRIBUTION WIDTH CV 13.1 % (11.5-14.5); RED CELL DISTRIBUTION WIDTH SD 45.5 fL (36.4-46.3)
[2017-10-25 12:47] LABS: HEMOGLOBIN A1C 5.8 % (4.5-5.6)
[2017-10-25 14:44] LABS: ALBUMIN 3.9 gm/dl (3.4-5.0); AST/SGOT 15 U/L (15-37); BLOOD UREA NITROGEN 11 mg/dl (7-18); CALCIUM 9.8 mg/dl (8.5-10.1); CARBON DIOXIDE 25 mmol/L (21-32); CHOLESTEROL 254 mg/dl (0-200); CREATININE 0.92 mg/dl (0.60-1.40); GLUCOSE 90 mg/dl (70-99); POTASSIUM 4.1 mmol/L (3.5-5.1); SODIUM 135 mmol/L (136-145)
[2017-10-25 14:50] LABS: ALKALINE PHOSPHATASE 97 U/L (45-117); ALT/SGPT 28 U/L (12-78); LDL CHOLESTEROL CALCULATED 146 mg/dl; TOTAL PROTEIN 7.4 gm/dl (6.4-8.2)
== END | disposition home or self-care (01) ==
LOC: C.LABBFT 09:06
PROVIDERS: ATTEND Internal Medicine
DX: E78.5 Hyperlipidemia, unspecified (principal); I25.10 Atherosclerotic heart disease of native coronary artery without angina pectoris; Z12.5 Encounter for screening for malignant neoplasm of prostate; R73.01 Impaired fasting glucose

== ENCOUNTER → 2018-05-15 | Outpatient (CLI) | payer BC ==
[2018-05-15 13:16] LABS: HEMOGLOBIN A1C 5.6 % (4.5-5.6)
[2018-05-15 13:17] LABS: ALBUMIN 3.8 gm/dl (3.4-5.0); ALKALINE PHOSPHATASE 84 U/L (45-117); ALT/SGPT 28 U/L (12-78); AST/SGOT 16 U/L (15-37); BLOOD UREA NITROGEN 13 mg/dl (7-18); CALCIUM 9.6 mg/dl (8.5-10.1); CARBON DIOXIDE 27 mmol/L (21-32); CHOLESTEROL 212 mg/dl (0-200); GLUCOSE 97 mg/dl (70-99); LDL CHOLESTEROL CALCULATED 118 mg/dl; POTASSIUM 5.2 mmol/L (3.5-5.1); SODIUM 134 mmol/L (136-145); TOTAL PROTEIN 7.2 gm/dl (6.4-8.2)
== END | disposition home or self-care (01) ==
LOC: C.LABBFT 07:06
PROVIDERS: ATTEND Internal Medicine
DX: E78.5 Hyperlipidemia, unspecified (principal); R73.01 Impaired fasting glucose

== ENCOUNTER 2023-09-17 10:25 | Inpatient (IN) ==
--- NOTE | 2023-09-17 10:45 | Emergency Department Note ---
History of Present Illness General Chief complaint: Fall Time Seen by Provider: 09/17/23 10:27 Source: patient and family (Daughter) History of Present Illness Provider complaint: Fall Onset (ago): day(s) 1 Location: upper extremity and right 82-year-old male presents emergency department for fall. Patient's daughter is here with him. Patient's daughter reports that the patient tripped on a rug outside and then fell and hurt his right arm. No reported loss of consciousness. Home Medications Medication Instructions Recorded Confirmed Type aspirin 81 mg tablet,delayed 81 mg PO DAILY 03/18/22 09/17/23 History release atorvastatin 20 mg tablet 20 mg PO DAILY 03/18/22 09/17/23 History metoprolol tartrate 25 mg tablet 12.5 mg PO BID 03/18/22 09/17/23 History multivitamin 1 tab PO QAM 09/17/23 09/17/23 History Allergies Allergy/AdvReac Type Severity Reaction Status Date / Time No Known Allergies Allergy Unknown Verified 09/17/23 13:20 Past Med/Surg History Medical History (Updated 09/17/23 @ 16:09 by Jayro Aguayo MD) Peripheral neuropathy History of inferior wall myocardial infarction (2002) Pleural effusion, left Peripheral vascular disease Neurologic gait dysfunction CAD, multiple vessel Impaired fasting glucose Hyperlipidemia Fatty liver Essential hypertension Esophageal reflux COPD with emphysema Sensorineural hearing loss of both ears Surgical History S/P right coronary artery (RCA) stent placement (2002) S/P CABG x 3 (2010) NAJERA to LAD & diagonal, SVG to OM Family History Father Suicide Family/Other Skin cancer Denies family history of Colon cancer Ovarian cancer Prostate cancer Myocardial infarction Breast cancer Social History Smoking Status: Current every day smoker Tobacco Type: Cigars Age Started Using Tobacco: 29; Cigarettes Per Day: 3 cigars a day; Second Hand Exposure: No; Do You Dip or Chew Tobacco: No; Hx Alcohol Use: Yes Alcohol type: beer Alcohol Intake Frequency: 4 or More x per/Week Alcohol Intake Frequency Comment: 3-4 beers per day Hx Substance Use: No Preferred Language: Mongolian Visual Impairment: No Limitations Hearing Ability: Use of Hearing Aid marital status: Current Living Situation: Alone current occupational status: retired current occupation: retired from [employer], worked in maintenance Feels Safe at Home: Yes Childhood Exposure to Second-Hand Smoke: No Diet: regular caffeine: Yes Dental Care, Regularly: No Physical Activity Frequency: Does not Exercise Seatbelt Use: always Sunscreen Use: No Physical Exam Vital Signs Vital Signs - 24 hr 09/17/23 10:40 09/17/23 10:40 09/17/23 10:44 Temperature 36.6 C Temperature Source Oral Pulse Rate 79 83 79 Pulse Rate [Right Finger] Pulse Rate from SpO2 Sensor Pulse Rhythm Regular Respiratory Rate 18 18 Respiratory Effort / Characteristics Non-Labored Spontaneous Respiratory Depth Normal Blood Pressure 160/96 H Blood Pressure [Left Arm] Blood Pressure Mean 117 Blood Pressure Mean [Left Arm] Pulse Oximetry 95 94 Oxygen Delivery Method Room Air Room Air Oxygen Flow Rate Sepsis Recent Fever Within 48 Hours No Sepsis New/Unexplained Change in Mental Status N/A Sepsis Action Taken by Nursing No Action Required End-Tidal CO2 09/17/23 12:11 09/17/23 12:11 09/17/23 12:16 Temperature Temperature Source Pulse Rate 80 77 Pulse Rate [Right Finger] Pulse Rate from SpO2 Sensor 69 Pulse Rhythm Respiratory Rate 20 12 Respiratory Effort / Characteristics Respiratory Depth Blood Pressure 162/99 H Blood Pressure [Left Arm] Blood Pressure Mean 116 Blood Pressure Mean [Left Arm] Pulse Oximetry 97 94 Oxygen Delivery Method Room Air Nasal Cannula Oxygen Flow Rate 2 Sepsis Recent Fever Within 48 Hours Sepsis New/Unexplained Change in Mental Status Sepsis Action Taken by Nursing End-Tidal CO2 20 09/17/23 12:16 09/17/23 12:21 09/17/23 12:21 Temperature Temperature Source Pulse Rate 78 Pulse Rate [Right Finger] Pulse Rate from SpO2 Sensor 79 Pulse Rhythm Respiratory Rate 14 Respiratory Effort / Characteristics Respiratory Depth Blood Pressure 165/89 H 157/93 H Blood Pressure [Left Arm] Blood Pressure Mean 129 117 Blood Pressure Mean [Left Arm] Pulse Oximetry 96 Oxygen Delivery Method Nasal Cannula Oxygen Flow Rate 2 Sepsis Recent Fever Within 48 Hours Sepsis New/Unexplained Change in Mental Status Sepsis Action Taken by Nursing End-Tidal CO2 24 09/17/23 12:27 09/17/23 12:27 09/17/23 12:30 Temperature Temperature Source Pulse Rate 81 81 Pulse Rate [Right Finger] Pulse Rate from SpO2 Sensor 79 81 Pulse Rhythm Respiratory Rate 16 18 Respiratory Effort / Characteristics Respiratory Depth Blood Pressure 160/91 H Blood Pressure [Left Arm] Blood Pressure Mean 99 Blood Pressure Mean [Left Arm] Pulse Oximetry 98 99 Oxygen Delivery Method Nasal Cannula Nasal Cannula Oxygen Flow Rate 2 2 Sepsis Recent Fever Within 48 Hours Sepsis New/Unexplained Change in Mental Status Sepsis Action Taken by Nursing End-Tidal CO2 23 19 09/17/23 12:31 09/17/23 12:31 09/17/23 12:35 Temperature Temperature Source Pulse Rate 82 Pulse Rate [Right Finger] Pulse Rate from SpO2 Sensor 83 Pulse Rhythm Respiratory Rate 16 Respiratory Effort / Characteristics Respiratory Depth Blood Pressure 153/96 H 170/94 H Blood Pressure [Left Arm] Blood Pressure Mean 123 106 Blood Pressure Mean [Left Arm] Pulse Oximetry 98 Oxygen Delivery Method Nasal Cannula Oxygen Flow Rate 2 Sepsis Recent Fever Within 48 Hours Sepsis New/Unexplained Change in Mental Status Sepsis Action Taken by Nursing End-Tidal CO2 23 09/17/23 12:35 09/17/23 12:40 09/17/23 12:40 Temperature Temperature Source Pulse Rate 84 82 Pulse Rate [Right Finger] Pulse Rate from SpO2 Sensor 83 83 Pulse Rhythm Respiratory Rate 18 18 Respiratory Effort / Characteristics Respiratory Depth Blood Pressure 176/87 H Blood Pressure [Left Arm] Blood Pressure Mean 106 Blood Pressure Mean [Left Arm] Pulse Oximetry 94 93 Oxygen Delivery Method Room Air Room Air Oxygen Flow Rate Sepsis Recent Fever Within 48 Hours Sepsis New/Unexplained Change in Mental Status Sepsis Action Taken by Nursing End-Tidal CO2 21 21 09/17/23 12:46 09/17/23 12:46 09/17/23 12:55 Temperature Temperature Source Pulse Rate 82 Pulse Rate [Right Finger] Pulse Rate from SpO2 Sensor 83 Pulse Rhythm Respiratory Rate 18 Respiratory Effort / Characteristics Respiratory Depth Blood Pressure 174/92 H 180/98 H Blood Pressure [Left Arm] Blood Pressure Mean 149 112 Blood Pressure Mean [Left Arm] Pulse Oximetry 98 Oxygen Delivery Method Room Air Oxygen Flow Rate Sepsis Recent Fever Within 48 Hours Sepsis New/Unexplained Change in Mental Status Sepsis Action Taken by Nursing End-Tidal CO2 24 09/17/23 12:55 09/17/23 14:15 09/17/23 14:17 Temperature Temperature Source Pulse Rate 87 80 Pulse Rate [Right Finger] 79 Pulse Rate from SpO2 Sensor 84 Pulse Rhythm Respiratory Rate 16 20 16 Respiratory Effort / Characteristics Non-Labored Spontaneous Respiratory Depth Normal Blood Pressure Blood Pressure [Left Arm] 135/78 Blood Pressure Mean Blood Pressure Mean [Left Arm] 97 Pulse Oximetry 95 92 92 Oxygen Delivery Method Room Air Room Air Room Air Oxygen Flow Rate Sepsis Recent Fever Within 48 Hours Sepsis New/Unexplained Change in Mental Status Sepsis Action Taken by Nursing End-Tidal CO2 24 09/17/23 15:30 Temperature Temperature Source Pulse Rate 75 Pulse Rate [Right Finger] Pulse Rate from SpO2 Sensor Pulse Rhythm Respiratory Rate Respiratory Effort / Characteristics Respiratory Depth Blood Pressure Blood Pressure [Left Arm] Blood Pressure Mean Blood Pressure Mean [Left Arm] Pulse Oximetry Oxygen Delivery Method Oxygen Flow Rate Sepsis Recent Fever Within 48 Hours Sepsis New/Unexplained Change in Mental Status Sepsis Action Taken by Nursing End-Tidal CO2 Physical Exam HENT: Exam performed. - Head: Left-sided periorbital ecchymosis. EYES: Conjunctivae and EOM are normal. Pupils are equal, round, and reactive to light. Right eye exhibits no discharge. Left eye exhibits no discharge. No scleral icterus. NECK: Normal range of motion. Neck supple. No JVD present. No spinous process tenderness present. CV: Normal rate, regular rhythm, normal heart sounds and intact distal pulses. There is no peripheral edema. Palpable radial pulses bue. PULM/CHEST: Effort normal and breath sounds normal. No respiratory distress. No stridor. He has no wheezes. He has no rales. ABD: The abdomen is soft. There is no tenderness. There is no rebound, no guarding. MUSC/SKEL: Pelvis stable. Right upper extremity is deformed with ecchymosis over the proximal humerus. Palpable radial and ulnar pulses. Left upper extremity within normal limits. SKIN: Ecchymosis over the bilateral lower extremities. Procedures Free Text Procedures Procedural Sedation Indication: reudction R shoulder. Total time: 19 minutes. Written consent was obtained after the risks and benefits were explained to the daughter in law, including, but not limited to aspiration, allergic reaction, breathing difficulties, cardiac complications, vomiting, pain, event recall, bleeding, and/or infection. Pre-sedation examination and paperwork completed. The patient was on 100% oxygen via NRB prior to the procedure. Continous end tidal CO2 monitoring, pulse oximetry, and cardiac monitoring were utilized. Suction, airway equipment, medications, respiratory equipment, and appropriate personnel were prepared prior to the initiation of the procedure. A time out was taken. Sedation was achieved utilizing 30 mg of propofol. After I observed the patient had reached the appropriate level of sedation the main procedure was performed without complication. Sedation was discontinued and the monitoring continued. The patient recovered quickly from the effects of the medication without complication or adverse event. Course Course 1027: The patient was evaluated in room C4. A complete history and physical exam was performed 1245: Vital signs stable. Attempted closed reduction without sedation was unsuccessful. Patient was sedated and then joint was reduced by ALISON Núñez see her procedure note. Successful reduction. After joint was reduced the patient was placed in shoulder immobilizer. Palpable radial pulse sensation intact capillary refill after the reduction. After reduction the patient's [id number] who is at bedside states that she will have difficulty taking care of the patient at home The patient cannot take care of himself. She is asking that the patient be placed in a rehab facility. Patient's [id number] will meet with case operator. Patient placed observation until we can find a disposition for the patient. 1545: Vital signs stable. Labs within normal limits. After discussion with case operator and family [facility]. Dr. Davidson aware. Administered Medications Discontinued Medications Fentanyl Citrate (Fentanyl Citrate Pf 100 Mcg/2 Ml Vial) Confirm Administered Dose 100 mcg .ROUTE .STK-MED ONE Stop: 09/17/23 11:49 Last Admin: 09/17/23 15:07 Dose: Not Given Documented By: MARIZOL Ondansetron HCl (Ondansetron Inj 2 Mg/Ml 2 Ml Vial) Confirm Administered Dose 4 mg .ROUTE .STK-MED ONE Stop: 09/17/23 12:11 Last Admin: 09/17/23 12:59 Dose: Not Given Documented By: QGV Ondansetron HCl (Ondansetron Inj 2 Mg/Ml 2 Ml Vial) 4 mg IV NOW ONE Stop: 09/17/23 12:16 Last Admin: 09/17/23 12:59 Dose: 4 mg Documented By: QGV Propofol (Propofol Iv Emulsion 10 Mg/Ml 20 Ml Vial) Confirm Administered Dose 200 mg IV .STK-MED ONE Stop: 09/17/23 12:09 Last Admin: 09/17/23 12:59 Dose: 30 mg Documented By: QGV Co-signed By: SOM Medical Decision Making Laboratory Data Attestation: I reviewed the patient's lab results. 09/17/23 11:20 09/17/23 11:20 Lab Results 09/17/23 Range/Units 11:20 WBC 11.32 H (4.8-10.8) K/ul RBC 4.78 (4.70-6.10) M/uL Hgb 16.1 (14.0-18.0) g/dl Hct 45.5 (42.0-52.0) % MCV 95.2 (80.0-100.0) fL MCH 33.7 (25.0-34.0) pg MCHC 35.4 (32.0-36.0) g/dL RDW Std Deviation 45.7 (36.4-46.3) fL RDW Coeff of Marcial 13.0 (11.5-14.5) % Plt Count 241 (130-400) K/uL MPV 10.3 (9.4-12.4) fL Immature Gran % (Auto) 0.5 % Neut % (Auto) 79.9 % Lymph % (Auto) 11.0 % [place] % (Auto) 8.5 % Eos % (Auto) 0.0 % Baso % (Auto) 0.1 % Neut # (Auto) 9.05 H (1.40-6.50) K/uL Lymph # (Auto) 1.24 (1.20-3.40) K/uL [place] # (Auto) 0.96 H (0.11-0.59) K/uL Eos # (Auto) 0.00 (0.00-0.50) K/uL Baso # (Auto) 0.01 (0.00-0.20) K/uL Immature Gran # (Auto) 0.06 (0.01-0.20) K/uL Sodium 131 L (136-145) mmol/L Potassium 4.8 (3.5-5.1) mmol/L Chloride 97 L (98-107) mmol/L Carbon Dioxide 23 (21-32) mmol/L Anion Gap 11 (3-11) BUN 21 (6-23) mg/dl Creatinine 0.73 (0.6-1.4) mg/dl Est Cr Clr Drug Dosing 74.4 ml/min Est GFR ( Amer) 99.4 ml/min Est GFR (Non-Af Amer) 85.8 ml/min BUN/Creatinine Ratio 28.8 H (10-20) Glucose 134 H (70-99(Fasting)) mg/dl Calcium 9.9 (8.6-10.3) mg/dl Total Creatine Kinase 388 H (30-223) U/L Troponin I High Sens 19.0 (0-20) pg/ml Lipase 24 (11-82) U/L Imaging Data Attestation: I personally reviewed and interpreted this imaging study as follows: My Impression: Right shoulder x-ray: Anterior shoulder dislocation Right shoulder x-ray status post reduction: Successful reduction of right shoulder Radiologist's Impression: Cervical Spine CT 09/17/23 10:35 CT OF THE CERVICAL SPINE WITHOUT CONTRAST CLINICAL HISTORY: fall COMPARISON STUDY: CTA of the neck September 20, 2018. TECHNIQUE: Helical axial images of the cervical spine were obtained without IV contrast. Sagittal and coronal reconstructions were viewed. Automated exposure control was utilized for the study. A dose lowering technique was utilized adhering to the principles of ALARA. FINDINGS: Alignment of the cervical spine is anatomic. Vertebral body heights are maintained. No acute cervical spine fracture or subluxation is present. There is no prevertebral edema. Facet joints are intact. Moderate multilevel facet arthrosis, disc space narrowing and osteophytosis is present. Emphysema is incidentally noted within the visualized lung apices. IMPRESSION: No acute cervical spine fracture or subluxation. ACT 112: Negative or not required by law. Electronically signed by: Peter De La Rosa M.D. 09/17/2023 11:38 AM Chest X-Ray 09/17/23 10:35 XR chest 1V portable CLINICAL HISTORY: fall COMPARISON STUDY: Chest CT December 26, 2018. Chest radiograph and left rib series August 11, 2020. FINDINGS: Note is made of an anterior right shoulder dislocation. There is an associated 2.6 cm fracture fragment arising from the humeral head. Smaller adjacent bone fragment is present. No pneumothorax or pleural effusion is present. There are median sternotomy wires and clips from bypass grafting. Linear right basilar densities represent atelectasis or scarring. No consolidation is identified suggest pneumonia. There is no pneumothorax. No pleural effusion. IMPRESSION: 1. No acute cardiopulmonary findings. 2. Anterior right shoulder dislocation and associated displaced fracture fragment arising from the humeral head. ACT 112: Negative or not required by law. Electronically signed by: Peter De La Rosa M.D. 09/17/2023 10:[address] 09/17/23 10:35 CT OF THE HEAD WITHOUT CONTRAST CLINICAL HISTORY: fall COMPARISON STUDY: Head CT, CTA of the head and MRI of the brain September 20, 2018. TECHNIQUE: Helical axial images of the head were obtained without IV contrast. Automated exposure control was utilized for the study. A dose lowering technique was utilized adhering to the principles of ALARA. FINDINGS: No acute intracranial hemorrhage, midline shift or mass effect is present. White matter hypodensity suggests small vessel disease. A lacunar infarct within left basal ganglia is new since prior head CT and MRI but likely chronic. The ventricular system is unremarkable. The basal cisterns are patent. No extra-axial collections are present. There are no findings to suggest acute dural sinus thrombosis or acute territorial infarct. No significant calvarial abnormalities are present. Visualized portions of the sinuses and mastoid air cells are clear. IMPRESSION: 1. No acute intracranial findings. 2. No acute calvarial fracture. ACT 112: Negative or not required by law. Electronically signed by: Peter De La Rosa M.D. 09/17/2023 11:35 AM Humerus X-Ray 09/17/23 10:35 XR humerus RT 2V CLINICAL HISTORY: fall COMPARISON: None FINDINGS: Incidental note is made of several old, healed right rib fractures. Anterior dislocation of the right humeral head with respect to the glenoid is noted. A 2.6 cm associated fracture fragment arises from the humeral head. There is no distal right humeral fracture. IMPRESSION: 1. Anterior right shoulder dislocation with associated 2.6 cm fracture fragment arising from the humeral head. 2. No distal right humeral fracture. ACT 112: Negative or not required by law. Electronically signed by: Peter De La Rosa M.D. 09/17/2023 10:59 AM Shoulder X-Ray 09/17/23 10:35 XR shoulder RT min 2V routine CLINICAL HISTORY: fall COMPARISON: None FINDINGS: There is anterior dislocation of the right humeral head with respect to the glenoid. An associated 2.6 cm fracture fragment arising from the superolateral aspect of the right humeral head is noted. IMPRESSION: Anterior right shoulder dislocation with associated 2.6 cm fracture fragment arising from the superolateral aspect the right humeral head. ACT 112: Negative or not required by law. Electronically signed by: Peter De La Rosa M.D. 09/17/2023 10:57 AM Pelvis X-Ray 09/17/23 10:40 XR pelvis 1-2V routine CLINICAL HISTORY: fall COMPARISON: CT of the abdomen and pelvis May 07, 2019. FINDINGS: Sacroiliac joints and symphysis pubis are intact. There is no acute fracture within the pelvis or hips. There is moderate vascular calcification. Moderate amount of stool within the visualized portions of the colon and rectum is present. Mild to moderate bilateral hip osteoarthritis. IMPRESSION: No acute fracture within the pelvis or hips. ACT 112: Negative or not required by law. Electronically signed by: Peter De La Rosa M.D. 09/17/2023 10:56 AM Shoulder X-Ray 09/17/23 12:22 XR shoulder RT min 2V routine CLINICAL HISTORY: Reduction. COMPARISON: Right shoulder radiographs performed earlier today. FINDINGS: There is anatomic alignment of the right glenohumeral joint post reduction. Alignment of the associated fracture arising from the superolateral aspect of the right humeral head has also improved. No additional fractures are identified. IMPRESSION: 1. Anatomic alignment of the right glenohumeral joint post reduction. 2. Improved alignment of the associated fracture fragment arising from the superolateral aspect of the right humeral head. ACT 112: Negative or not required by law. Electronically signed by: Peter De La Rosa M.D. 09/17/2023 12:42 PM ECG Data Attestation: I personally reviewed and interpreted this ECG as follows: Rate (beats per minute): 80 Rhythm: + normal sinus ECG Intervals/blocks: + First degree AV block, + Normal QRS and + Normal QT-c ECG ST segments: + Normal ST segments MDM Narrative 1027: The patient was evaluated in room C4. A complete history and physical exam was performed 1245: Vital signs stable. Attempted closed reduction without sedation was unsuccessful. Patient was sedated and then joint was reduced by ALISON Núñez see her procedure note. Successful reduction. After joint was reduced the patient was placed in shoulder immobilizer. Palpable radial pulse sensation intact capillary refill after the reduction. After reduction the patient's [id number] who is at bedside states that she will have difficulty taking care of the patient at home The patient cannot take care of himself. She is asking that the patient be placed in a rehab facility. Patient's [id number] will meet with case operator. Patient placed observation until we can find a disposition for the patient. 1545: Vital signs stable. Labs within normal limits. After discussion with case operator and family [facility]. Dr. Davidson aware. Observation note Indication: Attempting to find placement Patient, with COPD, coronary artery disease was first seen at 1027 hrs and the observation time began at 1245 hrs and was necessary in order to attempt to find the patient placement and avoid unnecessary admission . Upon re- evaluation, 3 hours of observation revealed that the patient should be admitted to the hospital service for placement.. Disposition date and time September 17, 2023 1545. Impression & Plan Anterior shoulder dislocation Discharge Plan Visit Data Chief Complaint: Fall ED Provider: Jayro Aguayo Discharge Problem: Anterior shoulder dislocation Patient Disposition: Being Evaluated by Hospitalist Forms Stand Alone Forms: My [facility] Prescriptions Prescriptions: No Action aspirin 81 mg tablet,delayed release (DR/EC) 81 mg PO DAILY atorvastatin 20 mg tablet 20 mg PO DAILY metoprolol tartrate 25 mg tablet 12.5 mg PO BID multivitamin Tablet 1 tab PO QAM Referrals Referrals: Mendy Maciel CRNP [Nurse Practitioner] - Discharge Problem: Anterior shoulder dislocation Qualifiers: Encounter type: initial encounter Laterality: right Qualified Code(s): S43.014A - Anterior dislocation of right humerus, initial encounter
--- NOTE | 2023-09-17 10:57 | XRay Report ---
XR chest 1V portable CLINICAL HISTORY: fall COMPARISON STUDY: Chest CT December 26, 2018. Chest radiograph and left rib series August 11, 2020. FINDINGS: Note is made of an anterior right shoulder dislocation. There is an associated 2.6 cm fract ure fragment arising from the humeral head. Smaller adjacent bone fragment is present. No pneumothora x or pleural effusion is present. There are median sternotomy wires and clips from bypass grafting. L inear right basilar densities represent atelectasis or scarring. No consolidation is identified sugge st pneumonia. There is no pneumothorax. No pleural effusion. IMPRESSION: 1. No acute cardiopulmonary findings. 2. Anterior right shoulder dislocation and associated displaced fracture fragment arising from the hu meral head. ACT 112: Negative or not required by law. Electronically signed by: Peter De La Rosa M.D. 09/17/2023 10:54 AM
--- NOTE | 2023-09-17 10:57 | XRay Report ---
XR pelvis 1-2V routine CLINICAL HISTORY: fall COMPARISON: CT of the abdomen and pelvis May 07, 2019. FINDINGS: Sacroiliac joints and symphysis pubis are intact. There is no acute fracture within the pe lvis or hips. There is moderate vascular calcification. Moderate amount of stool within the visualize d portions of the colon and rectum is present. Mild to moderate bilateral hip osteoarthritis. IMPRESSION: No acute fracture within the pelvis or hips. ACT 112: Negative or not required by law. Electronically signed by: Peter De La Rosa M.D. 09/17/2023 10:56 AM
--- NOTE | 2023-09-17 10:59 | XRay Report ---
XR shoulder RT min 2V routine CLINICAL HISTORY: fall COMPARISON: None FINDINGS: There is anterior dislocation of the right humeral head with respect to the glenoid. An as sociated 2.6 cm fracture fragment arising from the superolateral aspect of the right humeral head is noted. IMPRESSION: Anterior right shoulder dislocation with associated 2.6 cm fracture fragment arising from the superolateral aspect the right humeral head. ACT 112: Negative or not required by law. Electronically signed by: Peter De La Rosa M.D. 09/17/2023 10:57 AM
--- NOTE | 2023-09-17 11:00 | XRay Report ---
XR humerus RT 2V CLINICAL HISTORY: fall COMPARISON: None FINDINGS: Incidental note is made of several old, healed right rib fractures. Anterior dislocation o f the right humeral head with respect to the glenoid is noted. A 2.6 cm associated fracture fragment arises from the humeral head. There is no distal right humeral fracture. IMPRESSION: 1. Anterior right shoulder dislocation with associated 2.6 cm fracture fragment arising from the andrew ral head. 2. No distal right humeral fracture. ACT 112: Negative or not required by law. Electronically signed by: Peter De La Rosa M.D. 09/17/2023 10:59 AM
--- NOTE | 2023-09-17 11:37 | CT Scan Report ---
CT OF THE HEAD WITHOUT CONTRAST CLINICAL HISTORY: fall COMPARISON STUDY: Head CT, CTA of the head and MRI of the brain September 20, 2018. TECHNIQUE: Helical axial images of the head were obtained without IV contrast. Automated exposure con trol was utilized for the study. A dose lowering technique was utilized adhering to the principles o f ALARA. FINDINGS: No acute intracranial hemorrhage, midline shift or mass effect is present. White matter hyp odensity suggests small vessel disease. A lacunar infarct within left basal ganglia is new since prio r head CT and MRI but likely chronic. The ventricular system is unremarkable. The basal cisterns are patent. No extra-axial collections are present. There are no findings to suggest acute dural sinus th rombosis or acute territorial infarct. No significant calvarial abnormalities are present. Visualized portions of the sinuses and mastoid air cells are clear. IMPRESSION: 1. No acute intracranial findings. 2. No acute calvarial fracture. ACT 112: Negative or not required by law. Electronically signed by: Peter De La Rosa M.D. 09/17/2023 11:35 AM
--- NOTE | 2023-09-17 11:39 | CT Scan Report ---
CT OF THE CERVICAL SPINE WITHOUT CONTRAST CLINICAL HISTORY: fall COMPARISON STUDY: CTA of the neck September 20, 2018. TECHNIQUE: Helical axial images of the cervical spine were obtained without IV contrast. Sagittal a nd coronal reconstructions were viewed. Automated exposure control was utilized for the study. A do se lowering technique was utilized adhering to the principles of ALARA. FINDINGS: Alignment of the cervical spine is anatomic. Vertebral body heights are maintained. No acut e cervical spine fracture or subluxation is present. There is no prevertebral edema. Facet joints are intact. Moderate multilevel facet arthrosis, disc space narrowing and osteophytosis is present. Emp hysema is incidentally noted within the visualized lung apices. IMPRESSION: No acute cervical spine fracture or subluxation. ACT 112: Negative or not required by law. Electronically signed by: Peter De La Rosa M.D. 09/17/2023 11:38 AM
--- NOTE | 2023-09-17 11:41 | Emergency Department Note ---
ED Visit Note I was asked by Dr. Aguayo to help with this patient's right shoulder reduction. We did initially attempt by placing the patient prone and applying downward traction to the humerus while performing scapular manipulation. This was unsuccessful. Patient was then moved to room A1 and sedation was performed by Dr. Aguayo. Once the patient was adequately sedated, traction/countertraction and external rotation were used to reduce the shoulder. X-ray was obtained to confirm reduction. Please see Dr. Aguayo's note for full ED course and sedation notes. .
[2023-09-17] MEDS ORDERED: fentaNYL citrate PF 100 MCG/2 ML VIAL ONE (11:48)
[2023-09-17] MEDS ORDERED: PROPOFOL IV EMULSION 10 MG/ML 20 ML VIAL IV ONE (12:08)
[2023-09-17] MEDS ORDERED: ONDANSETRON INJ 2 MG/ML 2 ML VIAL ONE (12:10)
[2023-09-17] MEDS ORDERED: ONDANSETRON INJ 2 MG/ML 2 ML VIAL IV ONE (12:15)
--- NOTE | 2023-09-17 12:43 | XRay Report ---
XR shoulder RT min 2V routine CLINICAL HISTORY: Reduction. COMPARISON: Right shoulder radiographs performed earlier today. FINDINGS: There is anatomic alignment of the right glenohumeral joint post reduction. Alignment of t he associated fracture arising from the superolateral aspect of the right humeral head has also impro roshan. No additional fractures are identified. IMPRESSION: 1. Anatomic alignment of the right glenohumeral joint post reduction. 2. Improved alignment of the associated fracture fragment arising from the superolateral aspect of th e right humeral head. ACT 112: Negative or not required by law. Electronically signed by: Peter De La Rosa M.D. 09/17/2023 12:42 PM
--- NOTE | 2023-09-17 14:20 | Emergency Department Note ---
Pre Sedation Assessment Vital Signs Temp Pulse Pulse Resp BP BP Pulse Ox 09/17/23 14:17 79 16 135/78 92 09/17/23 14:15 80 20 92 09/17/23 12:55 87 16 95 09/17/23 12:55 180/98 H 09/17/23 12:46 82 18 98 09/17/23 12:46 174/92 H 09/17/23 12:40 176/87 H 09/17/23 12:40 82 18 93 09/17/23 12:35 84 18 94 09/17/23 12:35 170/94 H 09/17/23 12:31 82 16 98 09/17/23 12:31 153/96 H 09/17/23 12:30 81 18 99 09/17/23 12:27 81 16 98 09/17/23 12:27 160/91 H 09/17/23 12:21 78 14 96 09/17/23 12:21 157/93 H 09/17/23 12:16 165/89 H 09/17/23 12:16 77 12 94 09/17/23 12:11 80 20 97 09/17/23 12:11 162/99 H 09/17/23 10:44 79 09/17/23 10:40 83 18 94 09/17/23 10:40 36.6 C 79 18 160/96 H 95 O2 Del Method O2 Flow Rate 09/17/23 14:17 Room Air 09/17/23 14:15 Room Air 09/17/23 12:55 Room Air 09/17/23 12:55 09/17/23 12:46 Room Air 09/17/23 12:46 09/17/23 12:40 09/17/23 12:40 Room Air 09/17/23 12:35 Room Air 09/17/23 12:35 09/17/23 12:31 Nasal Cannula 2 09/17/23 12:31 09/17/23 12:30 Nasal Cannula 2 09/17/23 12:27 Nasal Cannula 2 09/17/23 12:27 09/17/23 12:21 Nasal Cannula 2 09/17/23 12:21 09/17/23 12:16 09/17/23 12:16 Nasal Cannula 2 09/17/23 12:11 Room Air 09/17/23 12:11 09/17/23 10:44 09/17/23 10:40 Room Air 09/17/23 10:40 Room Air Cardiovascular RRR, no murmur, no edema Respiratory normal respiratory effort, lungs clear to auscultation Pre-Sedation Airway Assessment Smoking Status: Current every day smoker Hx Sleep Apnea: No Short, Thick Neck: No Thyromental Distance: > or= 3.5 Finger Breadths Oral Cavity: + WNL Mallampati Class: II ASA: ASA2 NPO Status Date of Last Intake of Fluids: 09/17/23 Time of Last Intake of Fluids: 06:00 Date of Last Intake of Solid Food: 09/16/23 Time of Last Intake of Solid Foods: 19:00 Notes The planned sedation has been discussed with the patient. Informed Consent was obtained. I have identified the patient, determined the appropriateness of sedation and have assessed the patient immediately prior to the procedure. All medicine(s) and interventions are by my order.
--- NOTE | 2023-09-17 14:21 | Emergency Department Note ---
Post Sedation Assessment Vital Signs Temp Pulse Pulse Resp BP BP Pulse Ox 09/17/23 14:17 79 16 135/78 92 09/17/23 14:15 80 20 92 09/17/23 12:55 87 16 95 09/17/23 12:55 180/98 H 09/17/23 12:46 82 18 98 09/17/23 12:46 174/92 H 09/17/23 12:40 176/87 H 09/17/23 12:40 82 18 93 09/17/23 12:35 84 18 94 09/17/23 12:35 170/94 H 09/17/23 12:31 82 16 98 09/17/23 12:31 153/96 H 09/17/23 12:30 81 18 99 09/17/23 12:27 81 16 98 09/17/23 12:27 160/91 H 09/17/23 12:21 78 14 96 09/17/23 12:21 157/93 H 09/17/23 12:16 165/89 H 09/17/23 12:16 77 12 94 09/17/23 12:11 80 20 97 09/17/23 12:11 162/99 H 09/17/23 10:44 79 09/17/23 10:40 83 18 94 09/17/23 10:40 36.6 C 79 18 160/96 H 95 O2 Del Method O2 Flow Rate 09/17/23 14:17 Room Air 09/17/23 14:15 Room Air 09/17/23 12:55 Room Air 09/17/23 12:55 09/17/23 12:46 Room Air 09/17/23 12:46 09/17/23 12:40 09/17/23 12:40 Room Air 09/17/23 12:35 Room Air 09/17/23 12:35 09/17/23 12:31 Nasal Cannula 2 09/17/23 12:31 09/17/23 12:30 Nasal Cannula 2 09/17/23 12:27 Nasal Cannula 2 09/17/23 12:27 09/17/23 12:21 Nasal Cannula 2 09/17/23 12:21 09/17/23 12:16 09/17/23 12:16 Nasal Cannula 2 09/17/23 12:11 Room Air 09/17/23 12:11 09/17/23 10:44 09/17/23 10:40 Room Air 09/17/23 10:40 Room Air Recovery Score Activity: Moves 4 extremities Respiration: Deep Breath/Cough Circulation: +/-20% PreAnes Value Consciousness: Fully Awake Oxygen Saturation: > 92% On Room Air Post Anesthesia Score: 10 Discharge Sedation Level of Care: Fast Track Phase II Unexpected Event: None Post Sedation Plan On clinical assessment, the patient appears to have tolerated the sedation without complications. Patient is recovering as anticipated. Patient will continue to be monitored by nursing and may be discharged when sedation discharge criteria are met per below protocol. Upon Completions of procedure up to 15 minutes continue every 5 minute vital s igns and the P.A.R. score; then discharge to a Phase I or Fast Track to Phase II per the following guidelines: * Discharge Patient to appropriate Phase II area if PAR is 8 or greater or return to pre- procedure baseline. The post - procedure orders will be as directed. * If PAR score is less than 8 or not return to pre-procedure baseline then patient will follow Phase I monitoring till PAR is reached for Phase II. The Phase I may be done in procedure room or may call to secure a Phase I area. * If naloxone or flumazenil are used for reversal, hold in Phase I for continued monitoring from when last reversal dose was given for a minimum of 60 minutes or longer pending the nurse and/or physician discretion of patient condition before discharge to Phase II. Please call the Sedation Physician to re-evaluate and complete post-note for discharge to Phase II area. Do NOT discharge from procedure sedation or Phase 1 until post- sedation evaluation note is complete by procedure /sedation MD Sedation Discharge Instructions to be given to the patient at discharge to home. Sedation Data Sedation Times Sedation Start Date: 09/17/23 Sedation Start Time: 12:16 Sedation End Date: 09/17/23 Sedation End Time: 12:35 Total Sedation Time: 19 Procedure Times Procedure Start Time:: 12:18 Procedure End Time: 12:30 Specimens Specimens Obtained: No
[2023-09-17 14:51] LABS: Basophils # (auto) 0.01 K/uL (0.00-0.20); Basophils % (auto) 0.1 %; Hematocrit (blood only) 45.5 % (42.0-52.0); Hemoglobin 16.1 g/dl (14.0-18.0); Immature Granulocytes # (auto) 0.06 K/uL (0.01-0.20); Immature Granulocytes % (auto) 0.5 %; Lymphocytes # (auto) 1.24 K/uL (1.20-3.40); Mean Corpuscular Hemoglobin 33.7 pg (25.0-34.0); Mean Corpuscular Hgb Conc 35.4 g/dL (32.0-36.0); Mean Corpuscular Volume 95.2 fL (80.0-100.0); Mean Platelet Volume 10.3 fL (9.4-12.4); Monocytes # (auto) 0.96 K/uL (0.11-0.59); Monocytes % (auto) 8.5 %; Neutrophils # (auto) 9.05 K/uL (1.40-6.50); Neutrophils % (auto) 79.9 %; Platelet Count 241 K/uL (130-400); RDW Standard Deviation 45.7 fL (36.4-46.3); Red Blood Count 4.78 M/uL (4.70-6.10); White Blood Count 11.32 K/ul (4.8-10.8)
[2023-09-17 14:56] LABS: BUN Creatinine Ratio 28.8 (10-20); Calcium 9.9 mg/dl (8.6-10.3); Creatinine Clr Calc Pharmacy 74.4 ml/min; Est GFR (African American) 99.4 ml/min; Est GFR (Non-African American) 85.8 ml/min; Potassium 4.8 mmol/L (3.5-5.1)
--- NOTE | 2023-09-17 16:22 | History & Physical Report ---
Date of Service September 17, 2023 Assessment & Plan (1) Fall: Plan: Mechanical related to his longstanding peripheral neuropathy PT/OT, not felt to be safe at home and daughter requesting rehabilitation (2) Anterior shoulder dislocation: Plan: with associated humeral head fracture s/p reduction in the ER Hold aspirin given extensive ecchymosis Consult orthopedics Continue sling (3) Vitamin B12 deficiency: Plan: Repeat with AM labs (4) Peripheral neuropathy: (5) Humeral fracture: Plan VTE Prophylaxis - deferred chemical given extensive ecchymosis Diet - regular Disposition - observation to med/surg Admission and Anticipated Discharge Date Admission Date: September 17, 2023 History of Present Illness Chief Complaint: Fall Primary Care Provider: [facility] Chinedu Salmeron is an 82 year old male who presents to the ER after a fall due to tripping when he came through his door. He has a significant history of peripheral neuropathy likely leading to his falls - he has fallen 6 times this year. He denies any chest pain, dizziness or shortness of breath. Main injury from this fall was a right shoulder dislocation and fracture. Also with ecchymosis around left eye and some skin tears. Allergies Allergy/AdvReac Type Severity Reaction Status Date / Time No Known Allergies Allergy Unknown Verified 09/17/23 13:20 Home Medications Medication Instructions Recorded Confirmed Type aspirin 81 mg tablet,delayed 81 mg PO DAILY 03/18/22 09/17/23 History release atorvastatin 20 mg tablet 20 mg PO DAILY 03/18/22 09/17/23 History metoprolol tartrate 25 mg tablet 12.5 mg PO BID 03/18/22 09/17/23 History multivitamin 1 tab PO QAM 09/17/23 09/17/23 History Past Med/Surg History Medical History (Updated 09/18/23 @ 07:37 by Alan Davidson MD) Peripheral neuropathy History of inferior wall myocardial infarction (2002) Pleural effusion, left Peripheral vascular disease Neurologic gait dysfunction CAD, multiple vessel Impaired fasting glucose Hyperlipidemia Fatty liver Essential hypertension Esophageal reflux COPD with emphysema Sensorineural hearing loss of both ears Surgical History S/P right coronary artery (RCA) stent placement (2002) S/P CABG x 3 (2010) NAJERA to LAD & diagonal, SVG to OM Family History Father Suicide Family/Other Skin cancer Denies family history of Colon cancer Ovarian cancer Prostate cancer Myocardial infarction Breast cancer Social History Smoking Status: Current every day smoker Tobacco Type: Cigars Age Started Using Tobacco: 29; Cigarettes Per Day: 3 cigars a day; Second Hand Exposure: No; Do You Dip or Chew Tobacco: No; Tobacco Cessation Education Requested by Patient: No Hx Alcohol Use: Yes Alcohol type: beer Alcohol Intake Frequency: 4 or More x per/Week Alcohol Intake Frequency Comment: 3-4 beers per day Hx Substance Use: No Preferred Language: Maltese Communication Ability: Effective Visual Impairment: No Limitations Hearing Ability: Use of Hearing Aid Center Machine Set Up Operator Required: No Beliefs That Will Affect Care: None marital status: Current Living Situation: Alone current occupational status: retired current occupation: retired from [employer], worked in [employer] Other Information That Helps Us Care for You: No Feels Safe at Home: Yes Safety Concerns: Feels Safe At This Time Childhood Exposure to Second-Hand Smoke: No Diet: regular caffeine: Yes Dental Care, Regularly: No Physical Activity Frequency: Does not Exercise Seatbelt Use: always Sunscreen Use: No Assistive Devices: Brace/Splint/Immobilizer, Walker and Wheelchair Review of Systems Review of Systems: All systems reviewed & are unremarkable except as noted in HPI & below Physical Exam Constitutional: well developed and + frail appearing; + not well nourished and no acute distress Eyes: PERRL, conjunctivae normal, anicteric sclerae Ecchymosis over left eye ENMT: external ear and nose normal, oropharynx normal Respiratory: normal respiratory effort, lungs clear to auscultation Cardiovascular: RRR, no murmur, no edema Gastrointestinal (Abdomen): normal bowel sounds, soft, nontender, no hepatosplenomegaly Neurologic: moves all extremities and awake; not confused Results & Data Results & Data Vital Signs (Past 12 Hours) Vital Signs Temp Pulse Pulse Resp BP BP Pulse Ox 09/17/23 15:30 75 09/17/23 14:17 79 16 135/78 92 09/17/23 14:15 80 20 92 09/17/23 12:55 87 16 95 09/17/23 12:55 180/98 H 09/17/23 12:46 82 18 98 09/17/23 12:46 174/92 H 09/17/23 12:40 176/87 H 09/17/23 12:40 82 18 93 09/17/23 12:35 84 18 94 09/17/23 12:35 170/94 H 09/17/23 12:31 82 16 98 09/17/23 12:31 153/96 H 09/17/23 12:30 81 18 99 09/17/23 12:27 81 16 98 09/17/23 12:27 160/91 H 09/17/23 12:21 78 14 96 09/17/23 12:21 157/93 H 09/17/23 12:16 165/89 H 09/17/23 12:16 77 12 94 09/17/23 12:11 80 20 97 09/17/23 12:11 162/99 H 09/17/23 10:44 79 09/17/23 10:40 83 18 94 09/17/23 10:40 36.6 C 79 18 160/96 H 95 O2 Del Method O2 Flow Rate 09/17/23 15:30 09/17/23 14:17 Room Air 09/17/23 14:15 Room Air 09/17/23 12:55 Room Air 09/17/23 12:55 09/17/23 12:46 Room Air 09/17/23 12:46 09/17/23 12:40 09/17/23 12:40 Room Air 09/17/23 12:35 Room Air 09/17/23 12:35 09/17/23 12:31 Nasal Cannula 2 09/17/23 12:31 09/17/23 12:30 Nasal Cannula 2 09/17/23 12:27 Nasal Cannula 2 09/17/23 12:27 09/17/23 12:21 Nasal Cannula 2 09/17/23 12:21 09/17/23 12:16 09/17/23 12:16 Nasal Cannula 2 09/17/23 12:11 Room Air 09/17/23 12:11 09/17/23 10:44 09/17/23 10:40 Room Air 09/17/23 10:40 Room Air Laboratory Results Abnormal lab results 09/17/23 Range/Units 11:20 WBC 11.32 H (4.8-10.8) K/ul Neut # (Auto) 9.05 H (1.40-6.50) K/uL [place] # (Auto) 0.96 H (0.11-0.59) K/uL Sodium 131 L (136-145) mmol/L Chloride 97 L (98-107) mmol/L BUN/Creatinine Ratio 28.8 H (10-20) Glucose 134 H (70-99(Fasting)) mg/dl Total Creatine Kinase 388 H (30-223) U/L Diagnostic Findings CT OF THE HEAD WITHOUT CONTRAST CLINICAL HISTORY: fall COMPARISON STUDY: Head CT, CTA of the head and MRI of the brain September 20, 2018. TECHNIQUE: Helical axial images of the head were obtained without IV contrast. Automated exposure control was utilized for the study. A dose lowering technique was utilized adhering to the principles of ALARA. FINDINGS: No acute intracranial hemorrhage, midline shift or mass effect is present. White matter hypodensity suggests small vessel disease. A lacunar infarct within left basal ganglia is new since prior head CT and MRI but likely chronic. The ventricular system is unremarkable. The basal cisterns are patent. No extra-axial collections are present. There are no findings to suggest acute dural sinus thrombosis or acute territorial infarct. No significant calvarial abnormalities are present. Visualized portions of the sinuses and mastoid air cells are clear. IMPRESSION: 1. No acute intracranial findings. 2. No acute calvarial fracture. CT OF THE CERVICAL SPINE WITHOUT CONTRAST CLINICAL HISTORY: fall COMPARISON STUDY: CTA of the neck September 20, 2018. TECHNIQUE: Helical axial images of the cervical spine were obtained without IV contrast. Sagittal and coronal reconstructions were viewed. Automated exposure control was utilized for the study. A dose lowering technique was utilized adhering to the principles of ALARA. FINDINGS: Alignment of the cervical spine is anatomic. Vertebral body heights are maintained. No acute cervical spine fracture or subluxation is present. There is no prevertebral edema. Facet joints are intact. Moderate multilevel facet arthrosis, disc space narrowing and osteophytosis is present. Emphysema is incidentally noted within the visualized lung apices. IMPRESSION: No acute cervical spine fracture or subluxation. XR chest 1V portable CLINICAL HISTORY: fall COMPARISON STUDY: Chest CT December 26, 2018. Chest radiograph and left rib series August 11, 2020. FINDINGS: Note is made of an anterior right shoulder dislocation. There is an associated 2.6 cm fracture fragment arising from the humeral head. Smaller adjacent bone fragment is present. No pneumothorax or pleural effusion is present. There are median sternotomy wires and clips from bypass grafting. Linear right basilar densities represent atelectasis or scarring. No consolidation is identified suggest pneumonia. There is no pneumothorax. No pleural effusion. IMPRESSION: 1. No acute cardiopulmonary findings. 2. Anterior right shoulder dislocation and associated displaced fracture fragment arising from the humeral head. XR humerus RT 2V CLINICAL HISTORY: fall COMPARISON: None FINDINGS: Incidental note is made of several old, healed right rib fractures. Anterior dislocation of the right humeral head with respect to the glenoid is noted. A 2.6 cm associated fracture fragment arises from the humeral head. There is no distal right humeral fracture. IMPRESSION: 1. Anterior right shoulder dislocation with associated 2.6 cm fracture fragment arising from the humeral head. 2. No distal right humeral fracture. XR shoulder RT min 2V routine CLINICAL HISTORY: fall COMPARISON: None FINDINGS: There is anterior dislocation of the right humeral head with respect to the glenoid. An associated 2.6 cm fracture fragment arising from the superolateral aspect of the right humeral head is noted. IMPRESSION: Anterior right shoulder dislocation with associated 2.6 cm fracture fragment arising from the superolateral aspect the right humeral head. XR pelvis 1-2V routine CLINICAL HISTORY: fall COMPARISON: CT of the abdomen and pelvis May 07, 2019. FINDINGS: Sacroiliac joints and symphysis pubis are intact. There is no acute fracture within the pelvis or hips. There is moderate vascular calcification. Moderate amount of stool within the visualized portions of the colon and rectum is present. Mild to moderate bilateral hip osteoarthritis. IMPRESSION: No acute fracture within the pelvis or hips. XR shoulder RT min 2V routine CLINICAL HISTORY: Reduction. COMPARISON: Right shoulder radiographs performed earlier today. FINDINGS: There is anatomic alignment of the right glenohumeral joint post reduction. Alignment of the associated fracture arising from the superolateral aspect of the right humeral head has also improved. No additional fractures are identified. IMPRESSION: 1. Anatomic alignment of the right glenohumeral joint post reduction. 2. Improved alignment of the associated fracture fragment arising from the superolateral aspect of the right humeral head. Medications Administered ER Medications Given: Ondansetron 4mg IV ECG Rate (beats per minute): 80 Rhythm: normal sinus Findings: + 1st degree AV block Comparison ECG Date: from (August 10, 2018) Change: the following changes noted (widespread T wave flattening) Code Status & VTE Plan Code Status DNR/DNI VTE Prophylaxis Plan VTE Prophylaxis will be ordered: No PG Care Time/CCT Total # of Minutes Spent Total Time Spent with Patient: Total time spent is greater than 50% in coordination of care (as documented) at patient's floor/unit and/or counseling patient: Coding Level of Care Code 13165 INT INP/OBS CARE 2/55MIN Diagnoses Fall W19.XXXA Anterior shoulder dislocation S43.014A Encounter type: initial encounter Laterality: right Vitamin B12 deficiency E53.8 Peripheral neuropathy G62.9 Humeral fracture S42.309A (2) Anterior shoulder dislocation Encounter type: initial encounter Laterality: right Qualified Code(s): S43.014A - Anterior dislocation of right humerus, initial encounter
[2023-09-17] MEDS ORDERED: ONDANSETRON INJ 2 MG/ML 2 ML VIAL IV PRN (17:34)
[2023-09-17] MEDS ORDERED: LORazepam 1 MG TAB PO PRN (19:44)
[2023-09-17] MEDS: LACTATED RINGER'S 1,000 ML IV SCH (20:20)
[2023-09-17] MEDS: METOPROLOL TARTRATE 25 MG TAB PO SCH (20:22)
[2023-09-17] MEDS: ACETAMINOPHEN 500 MG TAB PO SCH (22:29)
[2023-09-18] MEDS: ACETAMINOPHEN 500 MG TAB PO SCH ×3 (05:49→21:18)
[2023-09-18 06:56] LABS: Potassium 4.4 mmol/L (3.5-5.1)
[2023-09-18 07:01] LABS: Basophils # (auto) 0.02 K/uL (0.00-0.20); Basophils % (auto) 0.2 %; Eosinophils # (auto) 0.02 K/uL (0.00-0.50); Eosinophils % (auto) 0.2 %; Hematocrit (blood only) 39.9 % (42.0-52.0); Hemoglobin 14.3 g/dl (14.0-18.0); Immature Granulocytes # (auto) 0.03 K/uL (0.01-0.20); Immature Granulocytes % (auto) 0.3 %; Lymphocytes % (auto) 22.9 %; Mean Corpuscular Hemoglobin 33.7 pg (25.0-34.0); Mean Corpuscular Hgb Conc 35.8 g/dL (32.0-36.0); Mean Corpuscular Volume 94.1 fL (80.0-100.0); Mean Platelet Volume 10.1 fL (9.4-12.4); Monocytes # (auto) 0.94 K/uL (0.11-0.59); Monocytes % (auto) 10.8 %; Neutrophils # (auto) 5.73 K/uL (1.40-6.50); Neutrophils % (auto) 65.6 %; Platelet Count 212 K/uL (130-400); RDW Coefficient of Variation 13.2 % (11.5-14.5); RDW Standard Deviation 45.3 fL (36.4-46.3); Red Blood Count 4.24 M/uL (4.70-6.10); White Blood Count 8.74 K/ul (4.8-10.8)
[2023-09-18 07:02] LABS: BUN Creatinine Ratio 27.3 (10-20); Creatinine Clr Calc Pharmacy 88.5 ml/min; Est GFR (African American) 111.7 ml/min; Est GFR (Non-African American) 96.4 ml/min
[2023-09-18] MEDS: LACTATED RINGER'S 1,000 ML IV SCH (07:29)
--- NOTE | 2023-09-18 08:31 | Hospitalist Progress Note ---
Date of Service September 18, 2023 Assessment & Plan (1) Fall: Plan: Mechanical related to his longstanding peripheral neuropathy. Fallen 6 times this year. Also w/ ecchymosis around L eye and some skin tears. CT head on admission negative for acute CVA Check UA/cx for further eval, additional testing for chronic hyponatremia as outlined below. B12 wnl Orthopedics consulted for below, planning CT shoulder for further information PT/OT, not felt to be safe at home and daughter requesting rehabilitation (2) Anterior shoulder dislocation: Plan: RIGHT SIDED -- associated humeral head fx, s/p reduction in ER Maintaining splint, ASA held given extensive ecchymosis --> will resume for AM given lacunar infarct within basal ganglia Maintaining sling Ortho consulted PT/OT w// avoidance ROM at shoulder for now Obtaining CT shoulder for further eval fracture Likely non-operative, will need f/u ortho 7-10 days at [place]. Pain control -- 4 doses toradol as needed, continue tylenol scheduled (3) Alcohol use: Plan: reports 3-4 beers daily per family. no known hx DT but does note some shakes w/o alcohol Last drink 2 evenings ago (09/16), NO tachycardia/temp/DT at present Give thiamine IV now, place on B12/folate/thiamine supplementation Rec continuing vitamin supplementation at discharge given long standing use/fall on admission Discussed w/ supervising provider and ok for 1 beer at night starting tonight to prevent issues. AWSS protocol , ativan available if needed If any evidence for DT will need moved to monitored bed, discussed w/ patient and family at bedside (4) Hyponatremia: Plan: chronic issue in nature Na 131 on admission, IVF placed for 1.5L, repeat 133 this morning check TSH for completeness, UA, urine studies AWSS protocol as above, B12 wnl but placing on vitamin supplementation, monitor for DTs BMP in AM (5) Vitamin B12 deficiency: Plan: Repeat with AM labs --> 509 on repeat and stable (6) Peripheral neuropathy: Plan: Longstanding, B12 checked on admit and normal at 509. Repeated falls/1st degree on EKG on admit will check Lyme. Hyponatremia longstanding, check TSH. Also check UA for further info. Lyme testing negative (7) Humeral fracture: Plan: as above, CT shoulder for further information ortho consulted outpt f/u, likely nonoperative Plan therapy evals pending, CT shoulder Family wanting to have patient at rehab at discharge Admission and Anticipated Discharge Date Admission Date: September 17, 2023 Supervising Physician Co-Signing Physician Notes The patient was not seen by me. The chart was reviewed. Case discussed with JOSHUA Nieves. Agree with assessment and plan Subjective Eval this afternoon, family in room. Doing alright, pain controlled. Notable wrist drop, likely nerve injury. Sling in place. Dscussed fracture/want to speak with Dr Diane about repair vs nonoperative but suggesting non-operative and xray follow up. Family wanting rehab. Dr Diane arrived to room during encounter, agreed w/ therapy and nonoperative approach and follow up in the office in 1-2 weeks for repeat imaging but will obtain CT shoulder w/o contrast for further eval prior to discharge to eval size of fracture. Smokes mini cigars, hx alcohol use 3-4 beers daily. Last drink 2 evenings ago. No prior DT/hospitalization but family noting concerns/shakes when doesn't have. Discussed about possible beer daily here to prevent issue and will monitor for DT/if occur needing telemetry monitoring but stable at present. Patient denies fever/chills, chest pain, shortness of breath at present. Questions/concerns addressed at this time. Physical Exam 2 Physical Exam: General 82yo male chronically ill appearing, not well nourished, sitting up in bed, family at bedside HEENT; head w/ ecchymosis to left eye from fall, no bleeding, pupils equal, hard of hearing Resp: even/unlabored, no w/c/r, diminished in the bases, on room air CV: RRR, +systolic murmur, no pitting edema/calf tenderness, trace pedal edema GI: +BS, soft/nt MSK/Neuro: R arm in sling, significant ecchymosis throughout RUE. tenderness anteriorly/laterally to shoulder. No palpation over AC joint. fingers mobile but decreased compared to the left, can make OK sign but not thumbs up. unable to fully extend fingers with extension, wrist drop noted, radial pulse palpable Psych: alert to person/place/time Results & Data Results & Data Vital Signs (Past 12 Hours) Vital Signs Temp Pulse Resp BP Pulse Ox O2 Del Method 09/18/23 07:19 36.6 C 62 18 155/83 H 97 Room Air 09/18/23 02:14 36.5 C 65 18 138/78 97 Room Air 09/17/23 22:30 36.7 C 90 18 130/68 94 Room Air Laboratory Results 09/18/23 05:53 09/18/23 05:53 B12 509 TSH 3.001 Lyme negative Diagnostic Findings Cervical Spine CT 09/17/23 10:35 CT OF THE CERVICAL SPINE WITHOUT CONTRAST CLINICAL HISTORY: fall COMPARISON STUDY: CTA of the neck September 20, 2018. TECHNIQUE: Helical axial images of the cervical spine were obtained without IV contrast. Sagittal and coronal reconstructions were viewed. Automated exposure control was utilized for the study. A dose lowering technique was utilized adhering to the principles of ALARA. FINDINGS: Alignment of the cervical spine is anatomic. Vertebral body heights are maintained. No acute cervical spine fracture or subluxation is present. There is no prevertebral edema. Facet joints are intact. Moderate multilevel facet arthrosis, disc space narrowing and osteophytosis is present. Emphysema is incidentally noted within the visualized lung apices. IMPRESSION: No acute cervical spine fracture or subluxation. ACT 112: Negative or not required by law. Electronically signed by: Peter De La Rosa M.D. 09/17/2023 11:38 AM Chest X-Ray 09/17/23 10:35 XR chest 1V portable CLINICAL HISTORY: fall COMPARISON STUDY: Chest CT December 26, 2018. Chest radiograph and left rib series August 11, 2020. FINDINGS: Note is made of an anterior right shoulder dislocation. There is an associated 2.6 cm fracture fragment arising from the humeral head. Smaller adjacent bone fragment is present. No pneumothorax or pleural effusion is present. There are median sternotomy wires and clips from bypass grafting. Linear right basilar densities represent atelectasis or scarring. No consolidation is identified suggest pneumonia. There is no pneumothorax. No pleural effusion. IMPRESSION: 1. No acute cardiopulmonary findings. 2. Anterior right shoulder dislocation and associated displaced fracture fragment arising from the humeral head. ACT 112: Negative or not required by law. Electronically signed by: Peter De La Rosa M.D. 09/17/2023 10:[address] 09/17/23 10:35 CT OF THE HEAD WITHOUT CONTRAST CLINICAL HISTORY: fall COMPARISON STUDY: Head CT, CTA of the head and MRI of the brain September 20, 2018. TECHNIQUE: Helical axial images of the head were obtained without IV contrast. Automated exposure control was utilized for the study. A dose lowering technique was utilized adhering to the principles of ALARA. FINDINGS: No acute intracranial hemorrhage, midline shift or mass effect is present. White matter hypodensity suggests small vessel disease. A lacunar infarct within left basal ganglia is new since prior head CT and MRI but likely chronic. The ventricular system is unremarkable. The basal cisterns are patent. No extra-axial collections are present. There are no findings to suggest acute dural sinus thrombosis or acute territorial infarct. No significant calvarial abnormalities are present. Visualized portions of the sinuses and mastoid air cells are clear. IMPRESSION: 1. No acute intracranial findings. 2. No acute calvarial fracture. ACT 112: Negative or not required by law. Electronically signed by: Peter De La Rosa M.D. 09/17/2023 11:35 AM Humerus X-Ray 09/17/23 10:35 XR humerus RT 2V CLINICAL HISTORY: fall COMPARISON: None FINDINGS: Incidental note is made of several old, healed right rib fractures. Anterior dislocation of the right humeral head with respect to the glenoid is noted. A 2.6 cm associated fracture fragment arises from the humeral head. There is no distal right humeral fracture. IMPRESSION: 1. Anterior right shoulder dislocation with associated 2.6 cm fracture fragment arising from the humeral head. 2. No distal right humeral fracture. ACT 112: Negative or not required by law. Electronically signed by: Peter De La Rosa M.D. 09/17/2023 10:59 AM Shoulder X-Ray 09/17/23 10:35 XR shoulder RT min 2V routine CLINICAL HISTORY: fall COMPARISON: None FINDINGS: There is anterior dislocation of the right humeral head with respect to the glenoid. An associated 2.6 cm fracture fragment arising from the superolateral aspect of the right humeral head is noted. IMPRESSION: Anterior right shoulder dislocation with associated 2.6 cm fracture fragment arising from the superolateral aspect the right humeral head. ACT 112: Negative or not required by law. Electronically signed by: Peter De La Rosa M.D. 09/17/2023 10:57 AM Pelvis X-Ray 09/17/23 10:40 XR pelvis 1-2V routine CLINICAL HISTORY: fall COMPARISON: CT of the abdomen and pelvis May 07, 2019. FINDINGS: Sacroiliac joints and symphysis pubis are intact. There is no acute fracture within the pelvis or hips. There is moderate vascular calcification. Moderate amount of stool within the visualized portions of the colon and rectum is present. Mild to moderate bilateral hip osteoarthritis. IMPRESSION: No acute fracture within the pelvis or hips. ACT 112: Negative or not required by law. Electronically signed by: Peter De La Rosa M.D. 09/17/2023 10:56 AM Shoulder X-Ray 09/17/23 12:22 XR shoulder RT min 2V routine CLINICAL HISTORY: Reduction. COMPARISON: Right shoulder radiographs performed earlier today. FINDINGS: There is anatomic alignment of the right glenohumeral joint post reduction. Alignment of the associated fracture arising from the superolateral aspect of the right humeral head has also improved. No additional fractures are identified. IMPRESSION: 1. Anatomic alignment of the right glenohumeral joint post reduction. 2. Improved alignment of the associated fracture fragment arising from the superolateral aspect of the right humeral head. ACT 112: Negative or not required by law. Electronically signed by: Peter De La Rosa M.D. 09/17/2023 12:42 PM PG Care Time/CCT Total # of Minutes Spent Total Time Spent with Patient: Total time spent is greater than 50% in coordination of care (as documented) at patient's floor/unit and/or counseling patient: Coding Level of Care Code 78409 SUB INP/OBS CARE 3/50MIN Diagnoses Fall W19.XXXA Anterior shoulder dislocation S43.014A Encounter type: initial encounter Laterality: right Alcohol use Z78.9 Hyponatremia E87.1 Vitamin B12 deficiency E53.8 Peripheral neuropathy G62.9 Humeral fracture S42.309A (2) Anterior shoulder dislocation Encounter type: initial encounter Laterality: right Qualified Code(s): S 43.014A - Anterior dislocation of right humerus, initial encounter
[2023-09-18] MEDS: METOPROLOL TARTRATE 25 MG TAB PO SCH ×2 (09:45→20:05)
[2023-09-18] MEDS: ATORVASTATIN 20 MG TAB PO SCH (09:46)
[2023-09-18 10:09] LABS: Lyme Ab IgG w/WB Rflx Negative (Negative); Lyme Ab IgM w/WB Rflx Negative (Negative)
--- NOTE | 2023-09-18 12:09 | Orthopedic Consultation ---
<Statement entered by Julien Diane, DO - 09/18/23 15:14> Patient seen and examined. Greater tuberosity fragment visualized on radiographs. I would recommend obtaining a CT scan prior to discharge. The patient can then be followed as an outpatient. No acute intervention needed during this admission. 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 Okay for some gentle elbow and wrist range of motion. Patient may be discharged and follow-up as an outpatient in 7-10 days Date of Consultation September 18, 2023 Assessment & Plan (1) Anterior shoulder dislocation: anterior shoulder dislocation with resultant neuropraxia x-rays reviewed by myself. anterior dislocation of the right shoulder which was then reduced by the emergency room staff successfully. Greater tuberosity fracture noted with a little bit better alignment After reduction. Continue sling for now. No range of motion of the right shoulder at this time. Greater tuberosity fracture may need surgery depending on how it heals. Dr. Diane to make that distinction. Ice to right shoulder to help with swelling. Pain medication as needed. Consider short-term low-dose Toradol use to help with inflammation. Comfortable presently. Neuropraxia likely secondary to dislocation and will take time to resolve. Patient advised to continue range of motion of his fingers and wrist at this time. He may also do gentle range of motion of his right elbow as able. PT and OT should be ordered for range of motion of the elbow and wrist but not of the shoulder. I will discuss the case with Dr. Diane who is on-call who will see the patient later this afternoon as well. History of Present Illness Reason for Consultation: right shoulder dislocation with resultant weakness of the right upper extremity Attending Physician: Tylor Stuart MD History of Present Illness 82-year-old male with peripheral neuropathy and multiple falls over the last year. Patient states that he was ambulating in his home when he tripped over the carpet and fell to the floor. He does not remember if his arms were outstretched etc.etc. He denies losing consciousness. He states that after the fall he had immediate pain in his right shoulder and was unable to use his right upper extremity secondary to pain and some weakness. He was brought to the emergency room where he was seen by the staff. X-rays were taken. It was found that he had a right shoulder anterior dislocation with a small greater tuberosity fracture noted. The ER staff then provided conscious sedation and reduced the patient's right shoulder dislocation without difficulty and he was placed in a sling. With his slow decline in ambulation abilities and multiple falls along with his shoulder dislocation with fracture he was admitted for further care. We have been asked to see him for his right shoulder injury. Allergies Allergy/AdvReac Type Severity Reaction Status Date / Time No Known Allergies Allergy Unknown Verified 09/17/23 13:20 Home Medications Medication Instructions Recorded Confirmed Type aspirin 81 mg tablet,delayed 81 mg PO DAILY 03/18/22 09/17/23 History release atorvastatin 20 mg tablet 20 mg PO DAILY 03/18/22 09/17/23 History metoprolol tartrate 25 mg tablet 12.5 mg PO BID 03/18/22 09/17/23 History multivitamin 1 tab PO QAM 09/17/23 09/17/23 History Patient History Medical History Peripheral neuropathy History of inferior wall myocardial infarction (2002) Pleural effusion, left Peripheral vascular disease Neurologic gait dysfunction CAD, multiple vessel Impaired fasting glucose Hyperlipidemia Fatty liver Essential hypertension Esophageal reflux COPD with emphysema Sensorineural hearing loss of both ears Surgical History S/P right coronary artery (RCA) stent placement (2002) S/P CABG x 3 (2010) NAJERA to LAD & diagonal, SVG to OM Family History Father Suicide Family/Other Skin cancer Denies family history of Colon cancer Ovarian cancer Prostate cancer Myocardial infarction Breast cancer Social History Smoking Status: Current every day smoker Tobacco Type: Cigars Age Started Using Tobacco: 29; Cigarettes Per Day: 3 cigars a day; Second Hand Exposure: No; Do You Dip or Chew Tobacco: No; Tobacco Cessation Education Requested by Patient: No Hx Alcohol Use: Yes Alcohol type: beer Alcohol Intake Frequency: 4 or More x per/Week Alcohol Intake Frequency Comment: 3-4 beers per day Hx Substance Use: No Preferred Language: Tuvaluan Communication Ability: Effective Visual Impairment: No Limitations Hearing Ability: Use of Hearing Aid Music Grapher Required: No Beliefs That Will Affect Care: None marital status: Current Living Situation: Alone current occupational status: retired current occupation: retired from [employer], worked in maintenance Other Information That Helps Us Care for You: No Feels Safe at Home: Yes Safety Concerns: Feels Safe At This Time Childhood Exposure to Second-Hand Smoke: No Diet: regular caffeine: Yes Dental Care, Regularly: No Physical Activity Frequency: Does not Exercise Seatbelt Use: always Sunscreen Use: No Assistive Devices: Brace/Splint/Immobilizer, Walker and Wheelchair Physical Exam Physical Exam: Patient is an 82-year-old white male who appears his stated age. He is awake and alert. Oriented to person and place. No acute distress. Patient has a sling on the right upper extremity. This is loosened for exam. Patient has moderate swelling of the right shoulder at this time. He is tender on palpation over the anterior and lateral aspects of his shoulder. No pain on palpation over the acromion or AC joint at this time. No overt erythema noted. He has moderate bruising of the extremity below the shoulder at the biceps region. he is nontender on palpation of the right elbow. Pain in the forearm. Has mild to moderate decrease sensation of the hand and fingers at this time. He has noticeable weakness of the fingers with range of motion. AIN and PIN appear affected with inability to do a thumb's up sign. he is able to try and perform an okay sign by touching the thumb with the index finger to each other but is very weak. He is unable to fully extend the third through fifth fingers during this maneuver. He is able to actively flex and extend the wrist but is somewhat weak. He is unable to fully flex or extend the elbow and or try to actively move the shoulder minimally. He has no pain over the clavicle on palpation. He has no pain over the cervical spine. No pain over the trapezius on palpation. Radial pulse intact. Results & Data Vital Signs (Past 12 Hours) Vital Signs Temp Pulse Resp BP Pulse Ox O2 Del Method 09/18/23 07:19 36.6 C 62 18 155/83 H 97 Room Air 09/18/23 02:14 36.5 C 65 18 138/78 97 Room Air Laboratory Results Laboratory Results WBC 8.74 K/ul (4.8-10.8) 09/18/23 05:53 RBC 4.24 M/uL (4.70-6.10) L 09/18/23 05:53 Hgb 14.3 g/dl (14.0-18.0) 09/18/23 05:53 Hct 39.9 % (42.0-52.0) L 09/18/23 05:53 MCV 94.1 fL (80.0-100.0) 09/18/23 05:53 MCH 33.7 pg (25.0-34.0) 09/18/23 05:53 MCHC 35.8 g/dL (32.0-36.0) 09/18/23 05:53 RDW Std Deviation 45.3 fL (36.4-46.3) 09/18/23 05:53 RDW Coeff of Marcial 13.2 % (11.5-14.5) 09/18/23 05:53 Plt Count 212 K/uL (130-400) 09/18/23 05:53 MPV 10.1 fL (9.4-12.4) 09/18/23 05:53 Immature Gran % (Auto) 0.3 % 09/18/23 05:53 Neut % (Auto) 65.6 % 09/18/23 05:53 Lymph % (Auto) 22.9 % 09/18/23 05:53 [place] % (Auto) 10.8 % 09/18/23 05:53 Eos % (Auto) 0.2 % 09/18/23 05:53 Baso % (Auto) 0.2 % 09/18/23 05:53 Neut # (Auto) 5.73 K/uL (1.40-6.50) 09/18/23 05:53 Lymph # (Auto) 2.00 K/uL (1.20-3.40) 09/18/23 05:53 [place] # (Auto) 0.94 K/uL (0.11-0.59) H 09/18/23 05:53 Eos # (Auto) 0.02 K/uL (0.00-0.50) 09/18/23 05:53 Baso # (Auto) 0.02 K/uL (0.00-0.20) 09/18/23 05:53 Immature Gran # (Auto) 0.03 K/uL (0.01-0.20) 09/18/23 05:53 Sodium 133 mmol/L (136-145) L 09/18/23 05:53 Potassium 4.4 mmol/L (3.5-5.1) 09/18/23 05:53 Chloride 102 mmol/L (98-107) 09/18/23 05:53 Carbon Dioxide 26 mmol/L (21-32) 09/18/23 05:53 Anion Gap 5 (3-11) 09/18/23 05:53 BUN 15 mg/dl (6-23) 09/18/23 05:53 Creatinine 0.55 mg/dl (0.6-1.4) L 09/18/23 05:53 Est Cr Clr Drug Dosing 88.5 ml/min 09/18/23 05:53 Est GFR ( Amer) 111.7 ml/min 09/18/23 05:53 Est GFR (Non-Af Amer) 96.4 ml/min 09/18/23 05:53 BUN/Creatinine Ratio 27.3 (10-20) H 09/18/23 05:53 Glucose 92 mg/dl (70-99(Fasting)) 09/18/23 05:53 Osmolality 278 mOsm/kg (280-300) L 09/18/23 08:36 Calcium 9.0 mg/dl (8.6-10.3) 09/18/23 05:53 Total Creatine Kinase 388 U/L (30-223) H 09/17/23 11:20 Troponin I High Sens 19.0 pg/ml (0-20) 09/17/23 11:20 Lipase 24 U/L (11-82) 09/17/23 11:20 Vitamin B12 509 pg/ml (180-914) 09/18/23 05:53 TSH 3.001 uIu/ml (0.300-4.500) 09/18/23 08:48 Lyme Disease IgG Ab Negative (Negative) 09/18/23 08:48 Lyme Disease IgM Ab Negative (Negative) 09/18/23 08:[address] 09/17/23 10:35 CT OF THE CERVICAL SPINE WITHOUT CONTRAST CLINICAL HISTORY: fall COMPARISON STUDY: CTA of the neck September 20, 2018. TECHNIQUE: Helical axial images of the cervical spine were obtained without IV contrast. Sagittal and coronal reconstructions were viewed. Automated exposure control was utilized for the study. A dose lowering technique was utilized adhering to the principles of ALARA. FINDINGS: Alignment of the cervical spine is anatomic. Vertebral body heights are maintained. No acute cervical spine fracture or subluxation is present. There is no prevertebral edema. Facet joints are intact. Moderate multilevel facet arthrosis, disc space narrowing and osteophytosis is present. Emphysema is incidentally noted within the visualized lung apices. IMPRESSION: No acute cervical spine fracture or subluxation. ACT 112: Negative or not required by law. Electronically signed by: Peter De La Rosa M.D. 09/17/2023 11:38 AM Chest X-Ray 09/17/23 10:35 XR chest 1V portable CLINICAL HISTORY: fall COMPARISON STUDY: Chest CT December 26, 2018. Chest radiograph and left rib series August 11, 2020. FINDINGS: Note is made of an anterior right shoulder dislocation. There is an associated 2.6 cm fracture fragment arising from the humeral head. Smaller adjacent bone fragment is present. No pneumothorax or pleural effusion is present. There are median sternotomy wires and clips from bypass grafting. Linear right basilar densities represent atelectasis or scarring. No consolidation is identified suggest pneumonia. There is no pneumothorax. No pleural effusion. IMPRESSION: 1. No acute cardiopulmonary findings. 2. Anterior right shoulder dislocation and associated displaced fracture fragment arising from the humeral head. ACT 112: Negative or not required by law. Electronically signed by: Peter De La Rosa M.D. 09/17/2023 10:[address] 09/17/23 10:35 CT OF THE HEAD WITHOUT CONTRAST CLINICAL HISTORY: fall COMPARISON STUDY: Head CT, CTA of the head and MRI of the brain September 20, 2018. TECHNIQUE: Helical axial images of the head were obtained without IV contrast. Automated exposure control was utilized for the study. A dose lowering technique was utilized adhering to the principles of ALARA. FINDINGS: No acute intracranial hemorrhage, midline shift or mass effect is present. White matter hypodensity suggests small vessel disease. A lacunar infarct within left basal ganglia is new since prior head CT and MRI but likely chronic. The ventricular system is unremarkable. The basal cisterns are patent. No extra-axial collections are present. There are no findings to suggest acute dural sinus thrombosis or acute territorial infarct. No significant calvarial abnormalities are present. Visualized portions of the sinuses and mastoid air cells are clear. IMPRESSION: 1. No acute intracranial findings. 2. No acute calvarial fracture. ACT 112: Negative or not required by law. Electronically signed by: Peter De La Rosa M.D. 09/17/2023 11:35 AM Humerus X-Ray 09/17/23 10:35 XR humerus RT 2V CLINICAL HISTORY: fall COMPARISON: None FINDINGS: Incidental note is made of several old, healed right rib fractures. Anterior dislocation of the right humeral head with respect to the glenoid is noted. A 2.6 cm associated fracture fragment arises from the humeral head. There is no distal right humeral fracture. IMPRESSION: 1. Anterior right shoulder dislocation with associated 2.6 cm fracture fragment arising from the humeral head. 2. No distal right humeral fracture. ACT 112: Negative or not required by law. Electronically signed by: Peter De La Rosa M.D. 09/17/2023 10:59 AM Pelvis X-Ray 09/17/23 10:40 XR pelvis 1-2V routine CLINICAL HISTORY: fall COMPARISON: CT of the abdomen and pelvis May 07, 2019. FINDINGS: Sacroiliac joints and symphysis pubis are intact. There is no acute fracture within the pelvis or hips. There is moderate vascular calcification. Moderate amount of stool within the visualized portions of the colon and rectum is present. Mild to moderate bilateral hip osteoarthritis. IMPRESSION: No acute fracture within the pelvis or hips. ACT 112: Negative or not required by law. Electronically signed by: Peter De La Rosa M.D. 09/17/2023 10:56 AM Shoulder X-Ray 09/17/23 12:22 XR shoulder RT min 2V routine CLINICAL HISTORY: Reduction. COMPARISON: Right shoulder radiographs performed earlier today. FINDINGS: There is anatomic alignment of the right glenohumeral joint post reduction. Alignment of the associated fracture arising from the superolateral aspect of the right humeral head has also improved. No additional fractures are identified. IMPRESSION: 1. Anatomic alignment of the right glenohumeral joint post reduction. 2. Improved alignment of the associated fracture fragment arising from the superolateral aspect of the right humeral head. ACT 112: Negative or not required by law. Electronically signed by: Peter De La Rosa M.D. 09/17/2023 12:42 PM (1) Anterior shoulder dislocation Encounter type: initial encounter Laterality: right Qualified Code(s): S43.014A - Anterior dislocation of right humerus, initial encounter
--- NOTE | 2023-09-18 13:09 | Electrocardiogram Report ---
Test Reason : Blood Pressure : / mmHG Vent. Rate : 080 BPM Atrial Rate : 080 BPM P-R Int : 242 ms QRS Dur : 092 ms QT Int : 362 ms P-R-T Axes : 085 076 011 degrees QTc Int : 417 ms Sinus rhythm with 1st degree A-V block Low voltage QRS Poor R wave progression, consider anterior ID vs. lead placement vs. LVH Abnormal ECG When compared with ECG of 10-AUG-2018 08:15, Premature ventricular complexes are no longer Present Nonspecific T wave abnormality now evident in Inferior leads Nonspecific T wave abnormality now evident in Lateral leads Confirmed by Cortes Saldivar ([id number]) on 09/18/2023 1:09:30 PM Referred By: REFERRED SELF Confirmed By:Cortes Saldivar
[2023-09-18] MEDS ORDERED: KETOROLAC TROMETHAMINE 15 MG/ML VIAL IV PRN (14:57)
[2023-09-18] MEDS ORDERED: THIAMINE HCL 200 MG in SODIUM CHLORIDE 0.9% 50 ML IV ONE (15:45)
--- NOTE | 2023-09-18 16:30 | CT Scan Report ---
RIGHT SHOULDER CT CT DOSE: 502.19 mGy.cm HISTORY: fall, eval fracture, nerve injury, wrist drop TECHNIQUE: Multiaxial CT images of the right shoulder were performed and reformatted in the sagittal and coronal plane without the use of contrast. A dose lowering technique was utilized adhering to th e principles of ALARA. COMPARISON: Right shoulder 09/17/2023. FINDINGS: There is again noted a comminuted and slightly displaced fracture involving the greater tub erosity of the right humeral head. This demonstrates up to 4 mm of displacement. No dislocation. No f ractures through the right humeral neck. The right clavicle and right scapula are intact. Soft tissue edema within the right shoulder and right upper arm. Mild vascular calcifications are noted. Gurmeet aviles. IMPRESSION: No change in the comminuted and slightly displaced fracture involving the greater tuberosity of the r ight humeral head. No dislocation. ACT 112: Negative or not required by law. Electronically signed by: Lloyd Schneider M.D. 09/18/2023 4:28 PM
[2023-09-18] MEDS: CYANOCOBALAMIN (B-12) 500 MCG TABLET PO SCH (17:11)
[2023-09-18] MEDS: FOLIC ACID 1 MG TAB PO SCH (17:12)
[2023-09-18] MEDS: BEER 1 CAN PO SCH (17:13)
[2023-09-18 18:00] LABS: Appearance Urine Clear (Clear); Bilirubin Urine Negative (Negative); Blood Urine Negative (Negative); Color Urine Orange; Glucose Urine UA Negative (Negative); Ketones Urine Trace (Negative); Leukocyte Esterase Urine Negative (Negative); Nitrite Urine Negative (Negative); Protein Urine Negative (Negative); Urobilinogen Urine Negative (Negative)
[2023-09-19] MEDS: ACETAMINOPHEN 500 MG TAB PO SCH ×3 (05:40→21:10)
[2023-09-19 07:42] LABS: Basophils # (auto) 0.02 K/uL (0.00-0.20); Basophils % (auto) 0.2 %; Eosinophils # (auto) 0.07 K/uL (0.00-0.50); Eosinophils % (auto) 0.7 %; Hematocrit (blood only) 37.2 % (42.0-52.0); Hemoglobin 13.4 g/dl (14.0-18.0); Immature Granulocytes # (auto) 0.04 K/uL (0.01-0.20); Immature Granulocytes % (auto) 0.4 %; Lymphocytes # (auto) 1.75 K/uL (1.20-3.40); Lymphocytes % (auto) 17.7 %; Mean Corpuscular Hemoglobin 33.9 pg (25.0-34.0); Mean Corpuscular Volume 94.2 fL (80.0-100.0); Mean Platelet Volume 9.9 fL (9.4-12.4); Monocytes # (auto) 0.92 K/uL (0.11-0.59); Monocytes % (auto) 9.3 %; Neutrophils # (auto) 7.06 K/uL (1.40-6.50); Neutrophils % (auto) 71.7 %; Platelet Count 190 K/uL (130-400); RDW Coefficient of Variation 12.6 % (11.5-14.5); RDW Standard Deviation 44.4 fL (36.4-46.3); Red Blood Count 3.95 M/uL (4.70-6.10); White Blood Count 9.86 K/ul (4.8-10.8)
[2023-09-19 08:08] LABS: Albumin Globulin Ratio 1.6 (0.9-2); Albumin Level 3.6 gm/dl (3.4-5.0); BUN Creatinine Ratio 27.9 (10-20); Calcium 9.1 mg/dl (8.6-10.3); Creatinine Clr Calc Pharmacy 71.6 ml/min; Est GFR (African American) 102.4 ml/min; Est GFR (Non-African American) 88.3 ml/min; Globulin 2.3 gm/dl (2.5-4.0); Potassium 3.9 mmol/L (3.5-5.1); Total Protein 5.9 gm/dl (6.0-8.3)
--- NOTE | 2023-09-19 08:13 | Hospitalist Progress Note ---
Date of Service September 19, 2023 Assessment & Plan (1) Fall: Plan: Mechanical related to his longstanding peripheral neuropathy. Fallen 6 times this year. Also w/ ecchymosis around L eye and some skin tears. CT head on admission negative for acute CVA Check UA/cx for further eval, additional testing for chronic hyponatremia as outlined below. B12 wnl Orthopedics consulted for below, planning CT shoulder for further eval --> CT shoulder without change in comminuted/slightly displaced fx greater tuberosity of R humeral head * Recs: "The patient can then be followed as an outpatient. No acute intervention needed during this admission. 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 Okay for some gentle elbow and wrist range of motion. Patient may be discharged and follow-up as an outpatient in 7-10 days" Given 1 dose toradol, continues on tylenol. Pain reported controlled PT/OT, not felt to be safe at home and daughter requesting rehabilitation. CM following. Will change to admit for today AWSS protocol/etc as below (2) Anterior shoulder dislocation: Plan: RIGHT SIDED -- associated humeral head fx, s/p reduction in ER Maintaining splint, ASA held given extensive ecchymosis --> will resume for AM given lacunar infarct within basal ganglia Maintaining sling Ortho consulted PT/OT w// avoidance ROM at shoulder for now Obtaining CT shoulder for further eval fracture - stable tuberosity fx as above, non-operative and outpatient follow up with ortho as above Pain control -- 4 doses toradol as needed (used 1 dose) continue tylenol scheduled [place] planning [place] (3) Alcohol use: Plan: reports 3-4 beers daily per family. no known hx DT but does note some shakes w/o alcohol Last drink 2 evenings ago (09/16), NO tachycardia/temp/DT at present Give thiamine IV now, place on B12/folate/thiamine supplementation Rec continuing vitamin supplementation at discharge given long standing use/fall on admission Discussed w/ supervising provider and ok for 1 beer at night starting PM 12/3 -- schedule for 1700 daily Thiamine 200mg IV given, continue 200mg PO BID, oral B12/folate (B12 not deficient on check) AWSS protocol , ativan available if needed If any evidence for DT will need moved to monitored bed, discussed w/ patient and family at bedside. NO EVIDENCE FOR DT AT PRESENT TIME (4) Hyponatremia: Plan: chronic issue in nature. not on meds to cause Na 131 on admission, IVF placed for 1.5L, repeat 133 TSH wnl on check, urine na 23 Na stable 133, additional 500cc NSS ordered for dehydration on exam, ?2nd to alcohol use/ADH effect BMP in AM (5) Vitamin B12 deficiency: Plan: B12 checked, 509 and stable Continue PO supplementation given etoh use as above (6) Peripheral neuropathy: Plan: Longstanding, B12 checked on admit and normal at 509. Repeated falls/1st degree on EKG on admit will check Lyme. Hyponatremia longstanding, check TSH. Also check UA for further info. Lyme testing negative (7) Humeral fracture: Plan: as above, CT shoulder for further information ortho consulted, nonoperative. outpt fu Plan continued inpatient stay, needing rehab at discharge Admission and Anticipated Discharge Date Admission Date: September 17, 2023 Supervising Physician Co-Signing Physician Notes The patient was not seen by me. The chart was reviewed. Case discussed with JOSHUA Nieves. Agree with assessment and plan Subjective Eval this morning, sitting up in the chair, no acute distress. Denies pain requiring medication to shoulder. Fingers more mobile/not needing assistance to move them today like yesterday but still with wrist drop. Beer last evening, no evidence for DT. CT shoulder reviewed. [facility] UOP overnight, bladder scanned for ~230cc but voided 200cc this morning, dark ronny. Slight dehydration on exam, NSS @ 80cc/hr x 500cc to be provided. Denies fever/chills, chest pain, shortness of breath, abdominal pain, nausea or vomiting reported. Questions/concerns addressed at this time. Physical Exam 2 Physical Exam: General 82yo male chronically ill appearing, not well nourished, sitting up in in recliner, NAD HEENT; head w/ ecchymosis to left eye from fall improving, no bleeding, pupils equal, hard of hearing Resp: even/unlabored, no w/c/r, diminished in the bases, on room air CV: RRR (rates 50-60s), +systolic murmur, no pitting edema/calf tenderness, trace pedal edema GI: +BS, soft/nt MSK/Neuro: R arm in sling, significant ecchymosis throughout RUE. tenderness anteriorly/laterally to shoulder. No palpation over AC joint. -fingers mobile but decreased compared t o the left, can make OK sign but not thumbs up. unable to fully extend fingers with extension, wrist drop noted (slightly improved today), radial pulse palpable Psych: alert to person/place/time, intermittent forgetfullness Results & Data Results & Data Vital Signs (Past 12 Hours) Vital Signs Temp Pulse Resp BP Pulse Ox O2 Del Method 09/19/23 07:54 36.6 C 56 L 18 121/77 97 Room Air 09/18/23 20:10 Room Air Laboratory Results 09/19/23 07:[address] 09/18/23 15:[address] DOSE: 502.19 mGy.cm HISTORY: fall, eval fracture, nerve injury, wrist drop TECHNIQUE: Multiaxial CT images of the right shoulder were performed and reformatted in the sagittal and coronal plane without the use of contrast. A dose lowering technique was utilized adhering to the principles of ALARA. COMPARISON: Right shoulder 09/17/2023. FINDINGS: There is again noted a comminuted and slightly displaced fracture involving the greater tuberosity of the right humeral head. This demonstrates up to 4 mm of displacement. No dislocation. No fractures through the right humeral neck. The right clavicle and right scapula are intact. Soft tissue edema within the right shoulder and right upper arm. Mild vascular calcifications are noted. Emphysema. IMPRESSION: No change in the comminuted and slightly displaced fracture involving the greater tuberosity of the right humeral head. No dislocation. ACT 112: Negative or not required by law. Electronically signed by: Lloyd Schneider M.D. 09/18/2023 4:28 PM PG Care Time/CCT Total # of Minutes Spent Total Time Spent with Patient: Total time spent is greater than 50% in coordination of care (as documented) at patient's floor/unit and/or counseling patient: Coding Level of Care Code 64603 SUB INP/OBS CARE 3/50MIN Diagnoses Fall W19.XXXA Anterior shoulder dislocation S43.014A Encounter type: initial encounter Laterality: right Alcohol use Z78.9 Hyponatremia E87.1 Vitamin B12 deficiency E53.8 Peripheral neuropathy G62.9 Humeral fracture S42.309A (2) Anterior shoulder dislocation Encounter type: initial encounter Laterality: right Qualified Code(s): S 43.014A - Anterior dislocation of right humerus, initial encounter
[2023-09-19] MEDS: FOLIC ACID 1 MG TAB PO SCH (08:31)
[2023-09-19] MEDS: CYANOCOBALAMIN (B-12) 500 MCG TABLET PO SCH (08:31)
[2023-09-19] MEDS: ATORVASTATIN 20 MG TAB PO SCH (08:31)
[2023-09-19] MEDS: THIAMINE HCL 100 MG TAB PO SCH ×2 (08:31→21:09)
[2023-09-19] MEDS: METOPROLOL TARTRATE 25 MG TAB PO SCH ×2 (08:32→21:09)
[2023-09-19 08:54] LABS: Appearance Urine Clear (Clear); Bacteria Urine Automated Negative (Negative); Blood Urine Negative (Negative); Color Urine Orange; Glucose Urine UA Negative (Negative); Ketones Urine 1+ (Negative); Leukocyte Esterase Urine Negative (Negative); Nitrite Urine Negative (Negative); Protein Urine Trace (Negative); RBC Urine Automated 0-4 /hpf (0-4); Specific Gravity Urine 1.032 (1.000-1.030); Urobilinogen Urine Negative (Negative); pH Urine 5.5 (4.5-7.5)
[2023-09-19 08:57] LABS: Bilirubin Urine 1+ (Negative)
[2023-09-19] MEDS: BEER 1 CAN PO SCH ×2 (11:13→17:18)
[2023-09-19] MEDS ORDERED: SODIUM CHLORIDE 0.9% 500 ML IV SCH (11:15)
[2023-09-19] MEDS: DOCUSATE SODIUM/SENNA 50/8.6MG TAB PO SCH (11:39)
[2023-09-19] MEDS: POLYETHYLENE (MIRALAX) 17 GM PACK PO SCH (11:39)
[2023-09-20] MEDS: ACETAMINOPHEN 500 MG TAB PO SCH ×3 (05:39→21:39)
[2023-09-20 07:11] LABS: Basophils # (auto) 0.04 K/uL (0.00-0.20); Basophils % (auto) 0.4 %; Eosinophils # (auto) 0.16 K/uL (0.00-0.50); Eosinophils % (auto) 1.8 %; Hematocrit (blood only) 37.6 % (42.0-52.0); Hemoglobin 13.4 g/dl (14.0-18.0); Immature Granulocytes # (auto) 0.03 K/uL (0.01-0.20); Immature Granulocytes % (auto) 0.3 %; Lymphocytes # (auto) 1.88 K/uL (1.20-3.40); Lymphocytes % (auto) 21.1 %; Mean Corpuscular Hemoglobin 33.8 pg (25.0-34.0); Mean Corpuscular Hgb Conc 35.6 g/dL (32.0-36.0); Mean Corpuscular Volume 94.7 fL (80.0-100.0); Mean Platelet Volume 9.6 fL (9.4-12.4); Monocytes # (auto) 0.69 K/uL (0.11-0.59); Monocytes % (auto) 7.7 %; Neutrophils # (auto) 6.11 K/uL (1.40-6.50); Neutrophils % (auto) 68.7 %; Platelet Count 203 K/uL (130-400); RDW Coefficient of Variation 12.8 % (11.5-14.5); RDW Standard Deviation 44.5 fL (36.4-46.3); Red Blood Count 3.97 M/uL (4.70-6.10); White Blood Count 8.91 K/ul (4.8-10.8)
[2023-09-20 07:35] LABS: BUN Creatinine Ratio 32.7 (10-20); Calcium 8.8 mg/dl (8.6-10.3); Creatinine Clr Calc Pharmacy 88.5 ml/min; Est GFR (African American) 111.7 ml/min; Est GFR (Non-African American) 96.4 ml/min; Magnesium 1.7 mg/dl (1.7-2.4); Potassium 3.5 mmol/L (3.5-5.1)
--- NOTE | 2023-09-20 08:42 | Hospitalist Progress Note ---
Date of Service September 20, 2023 Assessment & Plan (1) Fall: Plan: Mechanical related to his longstanding peripheral neuropathy. Fallen 6 times this year. Also w/ ecchymosis around L eye and some skin tears. CT head on admission negative for acute CVA Check UA/cx for further eval, additional testing for chronic hyponatremia as outlined below. B12 wnl Orthopedics consulted for below, planning CT shoulder for further eval --> CT shoulder without change in comminuted/slightly displaced fx greater tuberosity of R humeral head * Recs: "The patient can then be followed as an outpatient. No acute intervention needed during this admission. 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 Okay for some gentle elbow and wrist range of motion. Patient may be discharged and follow-up as an outpatient in 7-10 days" Given 1 dose toradol, continues on tylenol. Pain reported controlled and actually denied pain today PT/OT, not felt to be safe at home and daughter requesting rehabilitation. CM following, apply for auth for [facility] who can offer bed. 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 no known hx DT but does note some shakes w stopping possibly. Last drink 09/16 Provided 1 beer 09/18, declined 09/19 (doesn't like budweiser) but appearing quite stable/no tremors. Suspect some intermittent forgetfullness related to hearing IV thiamine x 1, continues on PO supplementation -- consider continuing at dc given use at baseline AWSS protocol, no DTs at present (4) Hyponatremia: Plan: chronic issue in nature. not on meds to cause Na 131 on admission, IVF placed for 1.5L, repeat 133 and had been eating/drinking but not much UOP 12/4, additional 500cc NS for mild dehydration (much improved on exam, good PO intake) Na stable 135, monitor BMP (5) Vitamin B12 deficiency: Plan: B12 checked, 509 and stable Continue PO supplementation given etoh use as above (6) Peripheral neuropathy: Plan: Longstanding, B12 checked on admit and normal at 509. Repeated falls/1st degree on EKG on admit will check Lyme -- negative Hyponatremia longstanding, checked TSH - wnl will add cortisol to AM labs for completeness (7) Humeral fracture: Plan: non operative, sling, outpt f/u ortho for repeat imaging rehab at [facility] Plan continued inpatient stay, CM applying for auth for [facility] today Admission and Anticipated Discharge Date Admission Date: September 19, 2023 Supervising Physician Co-Signing Physician Notes JOSHUA Supervision Note: I did not personally see or examine the patient today, but I verified all duggan points of JOSHUA Bejarano's assessment and plan with the following exceptions/additions: None Subjective Patient evaluated this morning. Resting in bed, reading a book. Denies having any pain. Declined beer last night -- budweiser not his preference and chuckled. No tremor. Improvement in mobility with fingers at the hand, able to give thumbs up sign today (was unable prior) No fever/chills, chest pain. Denies abdominal pain/nausea / vomiting. Labs stable. Planning for rehab. Questions/concerns addressed at this time. Physical Exam Physical Exam: General 82yo male chronically ill appearing,sitting up in bed, reading a book, no acute distess HEENT; head w/ ecchymosis to left eye from fall improving, no bleeding, pupils equal, hard of hearing Resp: even/unlabored, no w/c/r, diminished in the bases, on room air CV: RRR (rates 50-60s), +systolic murmur, no pitting edema/calf tenderness, trace pedal edema GI: +BS, soft/nt MSK/Neuro: R arm in sling, significant ecchymosis throughout RUE. tenderness anteriorly/laterally to shoulder. No palpation over AC joint. -fingers mobile but decreased compared to the left, improved extension of the fingers but continued wrist drop (slightly improved), radial pulse palpable able to make OK sign today (previously unable) Psych: alert to person/place/time, intermittent forgetfulness Results & Data Results & Data Vital Signs (Past 12 Hours) Vital Signs Temp Pulse Resp BP Pulse Ox O2 Del Method 09/20/23 08:13 36.4 C L 67 16 135/74 95 Room Air 09/19/23 21:10 Room Air 09/19/23 21:07 36.7 C 66 18 129/74 94 Room Air Laboratory Results 09/20/23 09/19/23 09/18/23 Range/Units 06:56 08:30 08:48 WBC 8.91 (4.8-10.8) K/ul RBC 3.97 L (4.70-6.10) M/uL Hgb 13.4 L (14.0-18.0) g/dl Hct 37.6 L (42.0-52.0) % MCV 94.7 (80.0-100.0) fL MCH 33.8 (25.0-34.0) pg MCHC 35.6 (32.0-36.0) g/dL RDW Std Deviation 44.5 (36.4-46.3) fL RDW Coeff of Marcial 12.8 (11.5-14.5) % Plt Count 203 (130-400) K/uL MPV 9.6 (9.4-12.4) fL Immature Gran % (Auto) 0.3 % Neut % (Auto) 68.7 % Lymph % (Auto) 21.1 % [place] % (Auto) 7.7 % Eos % (Auto) 1.8 % Baso % (Auto) 0.4 % Neut # (Auto) 6.11 (1.40-6.50) K/uL Lymph # (Auto) 1.88 (1.20-3.40) K/uL [place] # (Auto) 0.69 H (0.11-0.59) K/uL Eos # (Auto) 0.16 (0.00-0.50) K/uL Baso # (Auto) 0.04 (0.00-0.20) K/uL Immature Gran # (Auto) 0.03 (0.01-0.20) K/uL Sodium 135 L (136-145) mmol/L Potassium 3.5 (3.5-5.1) mmol/L Chloride 102 (98-107) mmol/L Carbon Dioxide 24 (21-32) mmol/L Anion Gap 9 (3-11) BUN 18 (6-23) mg/dl Creatinine 0.55 L (0.6-1.4) mg/dl Est Cr Clr Drug Dosing 88.5 ml/min Est GFR ( Amer) 111.7 ml/min Est GFR (Non-Af Amer) 96.4 ml/min BUN/Creatinine Ratio 32.7 H (10-20) Glucose 68 L (70-99(Fasting)) mg/dl Calcium 8.8 (8.6-10.3) mg/dl Magnesium 1.7 (1.7-2.4) mg/dl 25-OH Vitamin D Total 31.1 (30-100) ng/ml Urine Color [place] Urine Appearance Clear (Clear) Urine pH 5.5 (4.5-7.5) Ur Specific [place] 1.032 H (1.000-1.030) Urine Protein Trace H (Negative) Urine Glucose (UA) Negative (Negative) Urine Ketones 1+ H (Negative) Urine Blood Negative (Negative) Urine Nitrite Negative (Negative) Urine Bilirubin 1+ H (Negative) Urine Urobilinogen Negative (Negative) Ur Leukocyte Esterase Negative (Negative) Urine WBC (Auto) 1-5 (0-5) /hpf Urine RBC (Auto) 0-4 (0-4) /hpf U Hyaline Cast (Auto) 5-10 H (0-5) /lpf U Epithel Cells (Auto) 10-20 H (0-5) /lpf Urine Bacteria (Auto) Negative (Negative) Ur Random Sodium 23 mmol/L PG Care Time/CCT Total # of Minutes Spent Total Time Spent with Patient: Total time spent is greater than 50% in coordination of care (as documented) at patient's floor/unit and/or counseling patient: Coding Level of Care Code 71703 SUB INP/OBS CARE MIN Diagnoses Fall W19.XXXA Anterior shoulder dislocation S43.014A Encounter type: initial encounter Laterality: right Alcohol use Z78.9 Hyponatremia E87.1 Vitamin B12 deficiency E53.8 Peripheral neuropathy G62.9 Humeral fracture S42.309A (2) Anterior shoulder dislocation Encounter type: initial encounter Laterality: right Qualified Code(s): S43.014A - Anterior dislocation of right humerus, initial encounter
[2023-09-20] MEDS: DOCUSATE SODIUM/SENNA 50/8.6MG TAB PO SCH (08:58)
[2023-09-20] MEDS: THIAMINE HCL 100 MG TAB PO SCH ×2 (08:58→20:46)
[2023-09-20] MEDS: ASPIRIN 81 MG ECTAB PO SCH (08:58)
[2023-09-20] MEDS: ATORVASTATIN 20 MG TAB PO SCH (08:58)
[2023-09-20] MEDS: POLYETHYLENE (MIRALAX) 17 GM PACK PO SCH (08:58)
[2023-09-20] MEDS: METOPROLOL TARTRATE 25 MG TAB PO SCH ×2 (08:58→20:46)
[2023-09-20] MEDS: CYANOCOBALAMIN (B-12) 500 MCG TABLET PO SCH (08:58)
[2023-09-20] MEDS: FOLIC ACID 1 MG TAB PO SCH (08:59)
[2023-09-20] MEDS: BEER 1 CAN PO SCH (17:57)
[2023-09-21] MEDS: ACETAMINOPHEN 500 MG TAB PO SCH (05:12)
[2023-09-21] MEDS: POLYETHYLENE (MIRALAX) 17 GM PACK PO SCH (08:05)
[2023-09-21] MEDS: ASPIRIN 81 MG ECTAB PO SCH (08:05)
[2023-09-21] MEDS: THIAMINE HCL 100 MG TAB PO SCH (08:05)
[2023-09-21] MEDS: METOPROLOL TARTRATE 25 MG TAB PO SCH (08:05)
[2023-09-21] MEDS: FOLIC ACID 1 MG TAB PO SCH (08:06)
[2023-09-21] MEDS: DOCUSATE SODIUM/SENNA 50/8.6MG TAB PO SCH (08:06)
[2023-09-21] MEDS: CYANOCOBALAMIN (B-12) 500 MCG TABLET PO SCH (08:06)
[2023-09-21] MEDS: ATORVASTATIN 20 MG TAB PO SCH (08:06)
[2023-09-21 08:30] LABS: BUN Creatinine Ratio 34.6 (10-20); Calcium 9.1 mg/dl (8.6-10.3); Creatinine Clr Calc Pharmacy 93.6 ml/min; Est GFR (African American) 114.3 ml/min; Est GFR (Non-African American) 98.6 ml/min; Potassium 3.7 mmol/L (3.5-5.1)
--- NOTE | 2023-09-21 12:57 | Discharge Summary ---
Discharge Summary Date of Service September 21, 2023 Notes For Next Care Provider Medication Changes From Visit Tylenol 1000mg po q8h Added B12 1000mcg po daily, thiamine 100mg po daily, and folic acid 1mg po daily Admission HPI Per Admitting Provider Chinedu Salmeron is an 82 year old male who presents to the ER after a fall due to tripping when he came through his door. He has a significant history of peripheral neuropathy likely leading to his falls - he has fallen 6 times this year. He denies any chest pain, dizziness or shortness of breath. Main injury from this fall was a right shoulder dislocation and fracture. Also with ecchymosis around left eye and some skin tears. Principal Dx & Hospital Course #1 = Principal Diagnosis (1) Fall: Mechanical related to his longstanding peripheral neuropathy. Fallen 6 times this year. With right shoulder dislocation with greater tuberosity fracture and w/ ecchymosis around L eye and some skin tears. CT head on admission negative for acute CVA No evidenc eof infection contributing to fall and with chronic hyponatremia B12 wnl but does drink 3-4 beers daily Orthopedics consulted -CT shoulder for further eval--> CT shoulder without change in comminuted/slightly displaced fx greater tuberosity of R humeral head * Recs: "The patient can then be followed as an outpatient. No acute intervention needed during this admission. 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 Okay for some gentle elbow and wrist range of motion. Patient may be discharged and follow-up as an outpatient in 7-10 days" Only taking tylenol scheduled for pain RUE in sling, needs cockup splint for radial nerve injury needs rehab for PT/OT (2) Anterior shoulder dislocation: RIGHT SIDED -- associated humeral head fx, s/p reduction in ER Maintaining splint, ASA held given extensive ecchymosis --> resumed given old lacunar infarct within basal ganglia (3) Alcohol use: reports 3-4 beers daily per family. no known hx DT but does note some shakes w stopping possibly. Last drink 09/16 Provided 1 beer 09/18, declined 09/19 (doesn't like budweiser) but appearing quite stable/no tremors. Suspect some intermittent forgetfullness related to hearing no evidence of DT at time of discharge 09/21 continue thiamine, folic acid, MVI and B12 supplements on discharge (4) Hyponatremia: chronic issue in nature. not on meds to cause but liekly from beer potomania Na 131 on admission,improved to 134 by discharge follow BMP at rehab avoid EtoH (5) Vitamin B12 deficiency: B12 checked, 509 and stable Continue PO supplementation given etoh use as above (6) Peripheral neuropathy: Longstanding, B12 checked on admit and normal at 509. Repeated falls/1st degree on EKG on admit - checked Lyme -- negative could also be from EtOH use-encourage cessation (7) Humeral fracture: as above Plan Dispo-dc to rehab at [facility] today discussed care with DIL at bedside Discharge Exam Constitutional WD/WN, vitals as above Respiratory normal respiratory effort, lungs clear to auscultation Cardiovascular RRR, no murmur, no edema Musculoskeletal RUE in sling, right upper arm with significant ecchymosis and edema Psychiatric Orientation: alert and oriented x 3 Updated Medication List Medication Instructions Recorded Confirmed Type aspirin 81 mg tablet,delayed 81 mg PO DAILY 03/18/22 09/17/23 History release atorvastatin 20 mg tablet 20 mg PO DAILY 03/18/22 09/17/23 History metoprolol tartrate 25 mg tablet 12.5 mg PO BID 03/18/22 09/17/23 History multivitamin 1 tab PO QAM 09/17/23 09/17/23 History acetaminophen 500 mg tablet 1,000 mg (2 x 500 mg) PO Q8 #60 09/21/23 Rx (Tylenol Extra Strength) tabs cyanocobalamin (vitamin B-12) 500 1,000 mcg (2 x 500 mcg) PO QAM #60 09/21/23 Rx mcg tablet tabs folic acid 1 mg tablet 1 mg PO QAM #30 tabs 09/21/23 Rx polyethylene glycol 3350 17 gram 17 g PO DAILY #14 ea 09/21/23 Rx oral powder packet (Miralax) sennosides 8.6 mg-docusate sodium 1 tab PO QAM #14 tabs 09/21/23 Rx 50 mg tablet (Senokot-S) thiamine HCl (vitamin B1) 100 mg 100 mg PO DAILY #30 tabs 09/21/23 Rx tablet Hospital Stay Data Consultations 09/17/23 15:29 ED Decision to Admit Stat 09/17/23 17:34 Consult Orthopedic Surgery Routine Diagnostic Imagining Performed 09/17/23 10:35 CT cervical spine wo con Stat CT head/brain wo con Stat 09/18/23 15:17 CT shoulder RT wo con Routine Pending Results Patient Have Any Pending Studies at Discharge: No Discharge Instructions Given to Patient (Per Discharging Provider) Follow up with Orthopedics as an outpatient. 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 Okay for some gentle elbow and wrist range of motion. Tylenol can be used for pain. Monitor for any signs of alcohol withdrawal although not likely at this point as last drink several days ago. Check BMP in 2-3 days to follow mild hyponatremia which is improving with cessation of alcohol. Total Time Total Time Spent Total Time Spent (In Minutes): 35 min Coding Level of Care Code 45656 INP/OBS DISCH >30 MIN Diagnoses Fall W19.XXXA Anterior shoulder dislocation S43.014A Encounter type: initial encounter Laterality: right Alcohol use Z78.9 Hyponatremia E87.1 Vitamin B12 deficiency E53.8 Peripheral neuropathy G62.9 Humeral fracture S42.309A
== END 2023-09-21 13:20 | DRG 563 ==
LOC: ED 10:25 → EDINP 10:25 → SUATTDRO 16:19 → 3N 17:55 → SUATTDRO 09-19 11:17